=== PATIENT | male | born 1940 | race Caucasian/White ===

== ENCOUNTER → 2018-08-13 | Outpatient (REF) | payer MEDICARE | LOC: M SMT 17:06 | DX: R97.20 Elevated prostate specific antigen [PSA] (principal) | CPT/HCPCS: 87086 ==

== ENCOUNTER 2019-08-09 10:44 | Inpatient (IN) | payer MEDICARE ==
[~2019-08-09] VITALS: Ht 172.7 cm; Wt 87.4 kg
[2019-08-09] MEDS ORDERED: ATOR80TA59 PO (11:19)
[2019-08-09] MEDS ORDERED: PIOG1TAB36 PO (11:19)
[2019-08-09] MEDS ORDERED: FENO134C PO (11:19)
[2019-08-09] MEDS ORDERED: CARV3.12 PO (11:19)
[2019-08-09] MEDS ORDERED: GLIP5TAB8 PO (11:19)
[2019-08-09] MEDS ORDERED: LISI-538 PO (11:19)
[2019-08-09] MEDS ORDERED: ZYLO300T6 PO (11:19)
[2019-08-09] MEDS ORDERED: CYMB1CAP4 PO (11:19)
[2019-08-09] MEDS ORDERED: PARO40TA2 PO (11:19)
[2019-08-09] MEDS ORDERED: AMOX500T PO (11:19)
[2019-08-09] MEDS ORDERED: LEVO50TA5 PO (11:19)
--- NOTE | 2019-08-09 11:26 | REP ---
Clinical: Acute cerebrovascular accident . Findings: Age-related atrophy and microvascular ischemic changes are appreciated. The ventricles and sulci are symmetric. Mullins-white differentiation is maintained. There is no evidence for acute intracranial hemorrhage, mass/mass effect, pathology or infarction. No extra-axial fluid collection. Calvarium is intact. Paranasal sinuses and mastoid air cells are clear. Impression: Age related atrophy and microvascular ischemic changes. No acute intracranial hemorrhage, infarction, or mass/mass effect. Electronically Signed by Armando Hendrickson MD 08/09/2019 11:16 A
--- NOTE | 2019-08-09 11:32 | REP ---
Clinical: Acute cerebrovascular accident . Comparison: None . Findings: The mediastinum and cardiac silhouette are within normal limits for portable technique. Evidence of prior sternotomy and CABG along with epidural stimulator. The lung shea are clear without acute consolidation, effusion, or pneumothorax. Skeletal structures are intact. Impression: No acute cardiopulmonary process appreciated. Electronically Signed by Armando Hendrickson MD 08/09/2019 11:23 A
[2019-08-09 11:35] LABS: BASO # 0.1 10^3/uL (0.0-0.2); BASO % 1.2 % (0.0-1.0); EOS # 0.6 10^3/uL (0.0-0.5); EOS % 5.7 % (0.0-3.0); HEMATOCRIT 42.8 % (42.0-52.0); HEMOGLOBIN 13.7 g/dl (13.5-17.5); LYMPH # 2.6 10^3/uL (1.5-5.0); LYMPH % 24.9 % (24.0-44.0); MEAN CORPUSCULAR HEMOGLOBIN 31.2 pg (27.0-33.0); MEAN CORPUSCULAR VOLUME 97.5 fl (80.0-96.0); MONO # 0.8 10^3/uL (0.0-0.8); MONO % 7.8 % (0.0-5.0); NEUTROPHILS # 6.2 10^3/uL (1.5-8.5); NEUTROPHILS % 59.7 % (36.0-66.0); PLATELET COUNT, AUTOMATED 237 10^3/uL (150-450); RED BLOOD COUNT 4.39 10^6/uL (4.30-6.10); WHITE BLOOD COUNT 10.4 10^3/uL (4.0-10.0)
[2019-08-09 11:45] LABS: INR 1.06; PROTHROMBIN TIME 13.5 SECONDS (11.8-14.0)
[2019-08-09 11:46] LABS: PARTIAL THROMBOPLASTIN TIME 25.5 SECONDS (25.0-38.4)
[2019-08-09 11:56] LABS: BLOOD UREA NITROGEN 19 MG/DL (7-18); CALCIUM LEVEL 9.1 MG/DL (8.8-10.2); CARBON DIOXIDE LEVEL 28 MEQ/L (21-32); CHLORIDE LEVEL 108 MEQ/L (98-107); CK-MB VALUE MASS 1.3 NG/ML (<3.6); CPK CREATINE PHOSPHOKINASE 49 U/L (39-308); GLOMERULAR FILTRATION RATE 52.2 (>42); GLUCOSE, FASTING 261 MG/DL (70-100); MB/CK RELATIVE INDEX 2.65 (< OR =4); POTASSIUM SERUM 4.8 MEQ/L (3.5-5.1); SODIUM LEVEL 142 MEQ/L (136-145); TROPONIN I < 0.02 NG/ML (< 0.10)
[2019-08-09] MEDS ORDERED: ASPIRIN 325 MG TAB PO ONE (12:45)
[2019-08-09] MEDS ORDERED: CHOL100029 PO (12:51)
[2019-08-09] MEDS ORDERED: MULTCAP PO (12:51)
[2019-08-09] MEDS ORDERED: ASPI81TA21 PO (12:51)
[2019-08-09] MEDS ORDERED: GLUCOSE 4 GM CHEW TABLET PO PRN (14:00)
[2019-08-09] MEDS ORDERED: DEXTROSE 50% 50 ML SYRINGE IV PRN (14:00)
[2019-08-09] MEDS ORDERED: MOM 30ML SUSPENSION UDC PO PRN (14:00)
[2019-08-09] MEDS ORDERED: ACETAMINOPHEN TAB 650MG DOSE (2X325MG) PO PRN (14:00)
[2019-08-09] MEDS ORDERED: MAALOX 30 ML SUSP *UDC PO PRN (14:00)
[2019-08-09] MEDS ORDERED: GLUCAGON FOR INJ 1 MG VIAL (J1610) SC PRN (14:00)
--- NOTE | 2019-08-09 15:02 | REP ---
Clinical: Acute cerebrovascular accident . Technique: Mullins scale and color Doppler evaluation using linear high frequency transducer Findings: Two-dimensional mullins scale and color images demonstrate bilateral mixed atheromatous plaquing predominantly involving the right carotid bulb and proximal internal/external carotid arteries. Right-sided spectral broadening is noted along with mild turbulent flow. Normal flow direction noted to the bilateral vertebral arteries. RIGHT (cm/s) LEFT (cm/s) ICA peak systolic velocity 182.0 89.5 ICA diastolic velocity 40.1 23.1 ECA peak systolic velocity 602.4 131.2 CCA peak systolic velocity 77.6 107.1 ICA/CCA ratio 2.35 0.84 Impression: 1. Narrowing of the right internal carotid artery in the 50-69% range. 2. Significant stenosis to the right external carotid artery. 3. Narrowing of the left internal carotid artery in the less than 50%/normal range. Electronically Signed by Armando Hendrickson MD 08/09/2019 02:54 P
[2019-08-09 15:20] VITALS: BP 198/94
[2019-08-09] MEDS ORDERED: ISOVUE-370 76% 100ML VIAL (Q9967) As Ordered ONE (15:28)
[2019-08-09 16:00] VITALS: BP 198/94
[2019-08-09] MEDS ORDERED: CLOPIDOGREL 75 MG TAB PO ONE (16:00)
[2019-08-09] MEDS: CARVedilol 3.125 MG TAB PO SCH (16:19)
[2019-08-09] MEDS: ATORVASTATIN 20 MG TAB PO SCH (16:20)
[2019-08-09] MEDS: amLODIPine 5 MG TAB PO SCH ×2 (16:20→20:03)
[2019-08-09] MEDS: NS 1,000 ML IV SCH (16:23)
[2019-08-09] MEDS ORDERED: glipiZIDE (GLUCOTROL) 5 MG TAB PO SCH (17:00)
--- NOTE | 2019-08-09 17:17 | REPVR ---
PROCEDURE INFORMATION: Exam: CT Angiography Head With Contrast Exam date and time: 08/09/2019 4:34 PM Age: 79 years old Clinical history: Speech disturbance; Slurred speech; Additional info: CVA slurred speech TECHNIQUE: Imaging protocol: Computed tomography angiography of the head with intravenous contrast. 3D rendering: MIP and 3D reconstructed images were created and reviewed. Radiation optimization: All CT scans at this facility use at least one of these dose optimization techniques: automated exposure control; mA and/or kV adjustment per patient size (includes targeted exams where dose is matched to clinical indication); or iterative reconstruction. Contrast material: ISOVUE 370; Contrast volume: 100 ml; Contrast route: IV; COMPARISON: CT Head without contrast 08/09/2019 11:08 AM FINDINGS: Right internal carotid artery: Atherosclerotic changes demonstrated in the right intracranial carotid artery. There is mild to moderate stenosis. Right anterior cerebral artery: Unremarkable. No occlusion or significant stenosis. No aneurysm. Right middle cerebral artery: Moderate atherosclerotic narrowing distal M1 segment on the right. Right posterior cerebral artery: Unremarkable. No occlusion or significant stenosis. No aneurysm. Right vertebral artery: Mild atherosclerotic changes in the V4 segment of the right vertebral artery without significant stenosis. Left internal carotid artery: Atherosclerotic changes demonstrated in the left intracranial carotid artery. There is mild to moderate stenosis. Left anterior cerebral artery: Atherosclerotic moderate to high-grade narrowing and luminal irregularity in the left A1 segment. Left middle cerebral artery: Unremarkable. No occlusion or significant stenosis. No aneurysm. Left posterior cerebral artery: Unremarkable. No occlusion or significant stenosis. No aneurysm. Left vertebral artery: Unremarkable. No occlusion or significant stenosis. No aneurysm. Basilar artery: Dual supply of the right posterior cerebral artery from persistent circulation and contribution from the basilar artery. Dual supply to the left posterior cerebral artery from persistent circulation contribution from the basilar artery. IMPRESSION: 1. Atherosclerotic changes demonstrated in the right intracranial carotid artery. There is mild to moderate stenosis. 2. Atherosclerotic changes demonstrated in the left intracranial carotid artery. There is mild to moderate stenosis. 3. Moderate atherosclerotic narrowing distal M1 segment on the right. 4. Atherosclerotic moderate to high-grade narrowing and luminal irregularity in the left A1 segment. Electronically signed by: Karl Lobo On 08/09/2019 17:17:07 PM
--- NOTE | 2019-08-09 17:22 | REPVR ---
PROCEDURE INFORMATION: Exam: CT Angiography Neck With Contrast Exam date and time: 08/09/2019 4:34 PM Age: 79 years old Clinical history: Speech disturbance; Slurred speech; Additional info: CVA slurred speech TECHNIQUE: Imaging protocol: Computed tomography angiography of the neck with intravenous contrast. 3D rendering: MIP and 3D reconstructed images were created and reviewed. Radiation optimization: All CT scans at this facility use at least one of these dose optimization techniques: automated exposure control; mA and/or kV adjustment per patient size (includes targeted exams where dose is matched to clinical indication); or iterative reconstruction. Contrast material: ISOVUE 370; Contrast volume: 100 ml; Contrast route: IV; COMPARISON: US Duplex,carotid (complete) 08/09/2019 2:19 PM FINDINGS: VASCULATURE: Right common carotid artery: Tortuous right common carotid artery. Right internal carotid artery: There is moderate atherosclerotic changes in the proximal right ICA estimated at 50-60 % narrowing which is consistent with a moderate stenosis using NASCET criteria. Right external carotid artery: Unremarkable. No occlusion or stenosis of the origin. Right vertebral artery: Mild right vertebral artery dominance. Mild atherosclerosis before segment of the right vertebral artery without significant stenosis. Left common carotid artery: Unremarkable. No stenosis. No dissection or occlusion. Left internal carotid artery: There is mild to moderate atherosclerotic changes in the proximal left ICA estimated at less than 50 % narrowing which is consistent with a mild stenosis using NASCET criteria. Left external carotid artery: Unremarkable. No occlusion or stenosis of the origin. Left vertebral artery: Short segment high-grade stenosis in the mid V4 segment of the left vertebral artery either secondary to atherosclerotic narrowing or perhaps representing a short segment dissection. Subclavian arteries: Mild orthostatic changes at the origins of the left subclavian basilar arteries without significant stenosis. Aorta: The aorta demonstrates mild atherosclerotic calcification. Other vasculature: There is moderate atherosclerotic calcification of the coronary arteries. NECK: Bones/joints: Degenerative spondylosis cervical spine. Soft tissues: Normal. No significant soft tissue swelling. IMPRESSION: 1. There is moderate atherosclerotic changes in the proximal right ICA estimated at 50-60 % narrowing which is consistent with a moderate stenosis using NASCET criteria. 2. There is mild to moderate atherosclerotic changes in the proximal left ICA estimated at less than 50 % narrowing which is consistent with a mild stenosis using NASCET criteria. 3. Short segment high-grade stenosis in the mid V4 segment of the left vertebral artery either secondary to atherosclerotic narrowing or perhaps representing a short segment dissection. COMMENT: Reference per NASCET criteria for degree of stenosis: Mild: less than 50% stenosis. Moderate: 50-69% stenosis. Severe: 70-94% stenosis. Near occlusion: 95-99% stenosis. Electronically signed by: Karl Lobo On 08/09/2019 17:21:57 PM
[2019-08-09 17:55] VITALS: BP 169/78
[2019-08-09] MEDS ORDERED: **hydrALAZINE** 10 MG TAB PO SCH (18:00)
[2019-08-09] MEDS: **hydrALAZINE** 10 MG TAB PO SCH ×2 (18:00→22:00)
[2019-08-09] MEDS: HumaLOG INSULIN (NovoLOG) PER UNIT SC SCH ×2 (18:17→21:00)
[2019-08-09] MEDS: ISOSORBIDE DIN (ISORDIL) 10 MG TAB PO SCH (18:17)
[2019-08-09 20:00] VITALS: BP 172/64
[2019-08-09] MEDS: ENOXAPARIN 30 MG/0.3 ML SYR (J1650) SC SCH (20:01)
[2019-08-10] VITALS (10 sets, daily range): BP systolic 134–180; BP diastolic 60–80
[2019-08-10] MEDS: **hydrALAZINE** 10 MG TAB PO SCH ×6 (02:00→20:30)
[2019-08-10] MEDS: NS 1,000 ML IV SCH (05:23)
[2019-08-10] MEDS: CARVedilol 3.125 MG TAB PO SCH ×2 (05:24→16:30)
[2019-08-10 05:35] LABS: HEMATOCRIT 38.2 % (42.0-52.0); HEMOGLOBIN 12.2 g/dl (13.5-17.5); MEAN CORPUSCULAR HEMOGLOBIN 31.4 pg (27.0-33.0); MEAN CORPUSCULAR HGB CONC 31.9 g/dl (32.0-36.5); MEAN CORPUSCULAR VOLUME 98.2 fl (80.0-96.0); PLATELET COUNT, AUTOMATED 180 10^3/uL (150-450); RED BLOOD COUNT 3.89 10^6/uL (4.30-6.10); WHITE BLOOD COUNT 7.6 10^3/uL (4.0-10.0)
[2019-08-10] MEDS: LEVOTHYROXINE 50MCG TABLET (0.05MG) PO SCH (05:51)
[2019-08-10 06:01] LABS: ALBUMIN 3.3 GM/DL (3.2-5.2); ALT/SGPT 21 U/L (12-78); BILIRUBIN,TOTAL 0.5 MG/DL (0.2-1.0); BLOOD UREA NITROGEN 16 MG/DL (7-18); CALCIUM LEVEL 8.9 MG/DL (8.8-10.2); CARBON DIOXIDE LEVEL 27 MEQ/L (21-32); CHLORIDE LEVEL 111 MEQ/L (98-107); CREATININE FOR GFR 1.14 MG/DL (0.70-1.30); GLOMERULAR FILTRATION RATE > 60.0 (>42); GLUCOSE, FASTING 115 MG/DL (70-100); POTASSIUM SERUM 4.1 MEQ/L (3.5-5.1); SODIUM LEVEL 144 MEQ/L (136-145); TOTAL PROTEIN 6.3 GM/DL (6.4-8.2)
[2019-08-10] MEDS: ISOSORBIDE DIN (ISORDIL) 10 MG TAB PO SCH ×3 (06:50→17:00)
--- NOTE | 2019-08-10 07:25 | ECGEPIP ---
[facility] - ED Test Date: 2019-08-09 Pat Name: ROSA PINEDO Department: Room: - Gender: Male Electronic Funds Transfer Coordinator: rena : 1940 Requested By: PAULA Paula Order Number: [id number] Reading MD: Heidi Nieto Measurements Intervals Faison Rate: 74 P: 265 CO: 360 QRS: 20 QRSD: 105 T: 80 QT: 393 QTc: 437 Interpretive Statements ELECTRONIC INTERFERENCE NSR PACS LAE NSTTW abnormalities No prior ABNORMAL RHYTHM ECG Electronically Signed on 08-10-2019 7:24:50 EST by Heidi Nieto
[2019-08-10] MEDS ORDERED: VITAMIN D 1,000 INTERNATIONAL UNITS TABLET PO SCH (09:00)
[2019-08-10] MEDS ORDERED: LISINOPRIL 20 MG TAB PO SCH (09:00)
[2019-08-10] MEDS: HumaLOG INSULIN (NovoLOG) PER UNIT SC SCH ×4 (09:02→20:34)
[2019-08-10] MEDS: ALLOPURINOL 300 MG TAB PO SCH (09:03)
[2019-08-10] MEDS: PARoxetine 20 MG TAB PO SCH (09:03)
[2019-08-10] MEDS: CLOPIDOGREL 75 MG TAB PO SCH (09:03)
[2019-08-10] MEDS: ATORVASTATIN 20 MG TAB PO SCH (09:03)
[2019-08-10] MEDS: amLODIPine 5 MG TAB PO SCH ×2 (10:23→20:31)
--- NOTE | 2019-08-10 10:42 | HPE ---
DATE OF ADMISSION: 08/09/2019 CHIEF COMPLAINT: Slurred speech, gait instability. HISTORY OF PRESENTING ILLNESS: 79-year-old male who was in his usual state of health until 2 weeks ago, when he developed cough/cold symptoms, treated with amoxicillin in early July with a second course the past week. Patient has not been feeling well and has been increasingly tired and sleepy. On Saturday, he appeared to be normal, but before dinner, patient was noted to have slurring of speech. asked why he was mumbling, and the patient said that he did not think he put enough Fixodent on his dentures. Into the evening, patient appeared stable, walked back into the room after dinner. All day on Saturday, however, patient was noted to have worsening slurred speech, face was still symmetric. He was felt to be stumbling along as he walked with the right side appearing to be a little weaker and grabbing onto things. Patient had not had any falls and did not require any assistance with ambulation. Around 9 o'clock in the evening, patient's called the children and called 9--. The patient was adamant about not coming into the hospital, l his glucose level was normal, and he decided not to be evaluated. He is chronically on aspirin 81 mg, had not taken any others. Per the family, he was difficult to understand, but the words he selected were appropriate. He was leaning more to the right side and usually right-handed, having increasing tremors, but was able to eat his dinner without any difficulty. Today, due to worsening symptoms, patient was brought in by family to the emergency room. Initial blood pressure was 147/65. Glucose was 261, creatinine of 1.4. CT of the head was negative. No acute intracranial hemorrhage, infarct, or mass, or mass effect. Chest x-ray showed no acute cardiopulmonary process. Hospitalist was called to admit for slurred speech evaluation for acute stroke. At the bedside, he was noted to have difficulty with thin liquids, choked and spat out all of the water. Patient stated that he was coughing as he had been the past few days, and it was not because he had trouble swallowing. He was able to take the aspirin in, but all the liquid came out. PAST MEDICAL HISTORY: Coronary artery disease (CAD) stent, 1998. Coronary artery bypass graft (CABG). Hypothyroidism. BPH with lower urinary tract symptoms (LUTS). Obstructive sleep apnea (LIVIER), no mask. Gastric reflux. Hypertension. Prostatitis. Gout. Vitamin D deficiency. Erectile dysfunction. Hypercholesterolemia. Kidney stones. Myocardial infarction (CO) in 1998. Hyperlipidemia. Type 2 diabetes. Depression. History of atrial fibrillation. ALLERGIES: No known drug allergies. PAST SURGICAL HISTORY: CABG times four vessels. TENS unit. Kidney stones extraction. Epidural stimulator. HOME MEDICATIONS: - amoxicillin 500 mg every 8 hourly - fenofibrate 134 mg daily - multivitamin one tablet daily - pioglitazone 15 mg daily - aspirin 81 mg daily - allopurinol 300 mg daily - atorvastatin 80 mg nightly - Coreg 3.125 mg twice a day - glipizide 5 mg by mouth four times a day - levothyroxine 50 mcg daily - lisinopril 20 mg daily - paroxetine 40 mg daily - vitamin D 1000 units daily SOCIAL HISTORY: DO NOT RESUSCITATE, DO NOT INTUBATE. is the healthcare proxy [phone]. Lives at home with his . Finished high school. No alcohol use. Retired manager billing. Patient was a former smoker, quit in 1983. REVIEW OF SYSTEMS: Per history of present illness (HPI). Otherwise, denies any fever or chills. Had upper respiratory infection recently and cough productive of white sputum. No nausea, vomiting, diarrhea, abdominal pain, dysuria, urgency, frequency, chest pain, pressure, tightness, shortness of breath, palpitations, lightheadedness, dizziness. Patient complains of gait ataxia, slurring of speech. No difficulty with understanding. Able to speak using the correct words. No weight gain, weight loss. PHYSICAL EXAMINATION: Temperature 97.2, pulse 74, respiratory rate 16, 97% on room air, blood pressure 147/65, height 5 feet 8 inches tall, weight is 87.4 kg. Generally, patient is awake, alert, oriented to person, place, and time. Answers questions appropriately. Patient has right facial droop, some slurred speech. Speech is delayed. Tongue is deviated. Uvula also deviated. No jugular venous distention (JVD). Some dysmetria on [id number] testing. Motor function is 4/5. Decreased hand land law examiner on the left greater than the right. No sensory disturbance. Able to decipher sharp and dullness bilateral upper and lower extremities. Motor function in the right arm is 4/5, left is 5/5, lower extremities 5/5. Gait was not tested. Heart: S1, S2, irregular. Lungs are clear to auscultation. No wheezing or rales. Abdomen is soft, nontender, nondistended. Positive bowel sounds. Extremities: No cyanosis, clubbing, or pitting edema. White count 10.4, hemoglobin 13, hematocrit 42, platelet count 237. Sodium 142, potassium 4.8, chloride 108, bicarbonate 28, BUN 19, creatinine 1.4, glucose 261, total CK 49, MB 1.3. Troponin less than 0.02. IMAGING: CT head: No acute intracranial infarct, hemorrhage, or mass. Chest x-ray: Prior sternotomy, CABG, epidural stimulator. Lungs are clear. ASSESSMENT AND PLAN: 79-year-old male with history coronary artery disease (CAD) and coronary artery bypass graft (CABG), with epidural stimulator, on chronic aspirin, hypertension, diabetes, hyperlipidemia, obstructive sleep apnea, presents with complaint of slurring of speech that started on Saturday, worsened into Saturday, and brought into the emergency room on Saturday. Family has also noted gait ataxia, and patient complains of right-sided weakness, upper arm. ACTIVE ISSUES: 1. Slurred speech with right upper extremity weakness. Swallow evaluation to rule out aspiration. Currently, on dysphagia diet and thickened liquids. Aspirin 325 has been given, per Dr. Morales, Plavix to be added. Neuro checks every [address] A [address] angio of the head and neck. Neurologist, Dr. Morales, has been consulted. Echocardiogram and ARU screen. 2. Dysphagia to liquids. Aspiration risk. Head of bed greater than 30 degrees at all times and 90-degree angle with eating. 3. Renal failure. Unknown whether this is acute kidney injury or chronic kidney disease. Obtain records from patient's primary care. 4. Hypertension, uncontrolled. Due to acute stroke, keep blood pressure 160-180. Due to contrast study, patient has been given intravenous fluids to decrease risk of contrast nephropathy, and his lisinopril has been held. He is currently on isosorbide and hydralazine for blood pressure control. 5. Type 2 diabetes. Currently on hypoglycemic protocol, sliding scale. Oral hypoglycemics have been held secondary to renal failure and possible nothing by mouth status in the near future if patient is showing aspiration with thickened liquids. 6. History of epidural stimulator. Unable to obtain an MRI at this time. 7. Code status. DO NOT RESUSCITATE, DO NOT INTUBATE.
--- NOTE | 2019-08-10 10:56 | IPN ---
DATE: 08/10/2019 Overnight telemetry shows sinus rhythm with frequent premature atrial complexes. No atrial fibrillation or atrial flutter noted overnight. Patient was given aspirin and Plavix. CT head and neck shows high degree narrowing in the left vertebral artery. Mild to moderate stenosis right intracranial carotid artery, mild to moderate stenosis in the left intracranial carotid artery. Moderate atherosclerotic narrowing at distal M1 on the right and moderate to high grade narrowing and luminal irregularity in the left A1 segment. Moderate atherosclerotic changes proximal right internal carotid artery (ICA) 50-60%. Mild to moderate atherosclerotic internal jugular (IJ) changes proximal left ICA. Short segment of high grade stenosis mid V4 in the left vertebral artery secondary to atherosclerotic narrowing. The patient has no new neurological complaints overnight. Continues to complain of facial drooping, some dysphagia but tolerated thickened liquids yesterday. Awaiting swallow evaluation today and right hand and arm weakness. PHYSICAL EXAMINATION: Temperature 97.9, pulse 60, respiratory rate 16, blood pressure 164/80, 95% on room air. Patient has a notable right facial droop. Speech is slightly slurred. She improved from yesterday. No use of respiratory accessory muscles. No jaundice. No icterus. Patient has dentures. Bilateral cessation systems outreach specialist are decreased. Right arm strength is 4/5. Bilateral lower extremities are 5/5. Some dysmetria on [id number] testing. No pronator drift. Lungs are clear to auscultation. No wheezing, rales or rhonchi. Heart: S1, S2 regular. Abdomen is soft, nontender, nondistended. Positive bowel sounds. Extremities: No cyanosis, clubbing or pitting edema. LAB DATA: White count 7.6, hemoglobin 12, hematocrit 38, platelet count 180. Sodium 144, potassium 4.1, chloride 111, bicarbonate 27, BUN 16, creatinine 1.14, glucose 115. Imaging studies reviewed. ASSESSMENT/PLAN: This is a 79-year-old male with history of hypertension, coronary artery disease (CAD), coronary artery bypass graft (CABG), hypercholesterolemia, obstructive sleep apnea (LIVIER) elevate PSA, who presented with slurred speech, right-side weakness and ataxia since Saturday. He was found to have high-grade stenosis on the left vertebral artery 1. Acute cerebrovascular accident (CVA): Patient is at risk for aspiration and has been placed on dysphagia-free diet with thickened liquids. Swallow evaluation today. On aspirin and Plavix. Neurology consult and neurological checks every 4 hours. Blood pressure maintained between 160-180 the first [address] of the head this afternoon. Continue telemetry and echo pending. 2. Hypertension: Currently keeping the systolic pressure at 160-180. Patient's lisinopril was discontinued due to acute kidney injury and recent contrast study. Currently, stable. Add Isosorbide and hydralazine as needed for systolic pressure greater than 180. 3. Gout: On allopurinol. 4. Depression: On Paxil. 5. History of coronary artery disease: Patient on aspirin and Plavix hydralazine, Imdur and Coreg. 6. Dyslipidemia: On Lipitor. DISPOSITION: Await swallow evaluation, echocardiogram and neurologic recommendations. Acute rehabilitation unit (ARU) screen.
[2019-08-10 11:04] LABS: CHOLESTEROL LEVEL 152 MG/DL (<200); CHOLESTEROL RISK RATIO 6.333 (<5); HDL CHOLESTEROL 24 MG/DL (>40); LDL CHOLESTEROL 79 MG/DL (<100); NON-HDL-C 128 MG/DL; TRIGLYCERIDES LEVEL 247 MG/DL (<150)
--- NOTE | 2019-08-10 16:52 | REP ---
CT brain: 08/10/2019. Indication: Stroke. Comparison: Yesterday. Technique: Unenhanced axial CT images of the brain were obtained from skull base to vertex. Findings: There is no acute intracranial hemorrhage, acute cortical infarction, hydrocephalus or intracranial mass effect. Age-related volume loss is present. Mineralization is noted within the basal ganglia bilaterally and left dentate nucleus. Patchy cerebral hemisphere white matter hypoattenuation is present most consistent with sequelae of chronic microangiopathic ischemic disease. Impression: No intracranial hemorrhage or additional acute intracranial pathology. Electronically Signed by Ej Morel DO 08/10/2019 04:44 P
[2019-08-10] MEDS: ENOXAPARIN 30 MG/0.3 ML SYR (J1650) SC SCH (20:29)
[2019-08-10] MEDS: ASPIRIN 81 MG ENTERIC TAB PO SCH (20:30)
[2019-08-10] MEDS ORDERED: SLF 3 ML SYR IV PRN (23:45)
[2019-08-11] VITALS (9 sets, daily range): BP systolic 142–170; BP diastolic 60–84
[2019-08-11] MEDS: **hydrALAZINE** 10 MG TAB PO SCH ×3 (01:19→10:00)
[2019-08-11] MEDS: ISOSORBIDE DIN (ISORDIL) 10 MG TAB PO SCH ×2 (05:55→11:50)
[2019-08-11] MEDS: LEVOTHYROXINE 50MCG TABLET (0.05MG) PO SCH (05:56)
[2019-08-11] MEDS: CARVedilol 3.125 MG TAB PO SCH ×2 (05:57→16:47)
[2019-08-11] MEDS: SLF 3 ML SYR IV SCH ×3 (05:57→20:10)
[2019-08-11 05:59] LABS: HEMATOCRIT 38.9 % (42.0-52.0); HEMOGLOBIN 12.1 g/dl (13.5-17.5); MEAN CORPUSCULAR HEMOGLOBIN 30.6 pg (27.0-33.0); MEAN CORPUSCULAR HGB CONC 31.1 g/dl (32.0-36.5); MEAN CORPUSCULAR VOLUME 98.2 fl (80.0-96.0); PLATELET COUNT, AUTOMATED 184 10^3/uL (150-450); RED BLOOD COUNT 3.96 10^6/uL (4.30-6.10)
[2019-08-11 06:09] LABS: BLOOD UREA NITROGEN 13 MG/DL (7-18); CALCIUM LEVEL 8.5 MG/DL (8.8-10.2); CARBON DIOXIDE LEVEL 27 MEQ/L (21-32); CHLORIDE LEVEL 113 MEQ/L (98-107); GLOMERULAR FILTRATION RATE > 60.0 (>42); GLUCOSE, FASTING 163 MG/DL (70-100); MAGNESIUM LEVEL 1.9 MG/DL (1.8-2.4); POTASSIUM SERUM 3.9 MEQ/L (3.5-5.1); SODIUM LEVEL 145 MEQ/L (136-145)
[2019-08-11] MEDS: ALLOPURINOL 300 MG TAB PO SCH (08:20)
[2019-08-11] MEDS: CLOPIDOGREL 75 MG TAB PO SCH (08:20)
[2019-08-11] MEDS: ATORVASTATIN 20 MG TAB PO SCH (08:20)
[2019-08-11] MEDS: PARoxetine 20 MG TAB PO SCH (08:21)
[2019-08-11] MEDS: HumaLOG INSULIN (NovoLOG) PER UNIT SC SCH ×4 (08:21→20:09)
[2019-08-11] MEDS: amLODIPine 5 MG TAB PO SCH ×2 (08:24→20:21)
--- NOTE | 2019-08-11 09:11 | CR ---
DATE OF CONSULTATION: 08/11/2019 REASON FOR CONSULTATION: Suspected stroke. REFERRING PROVIDER: Dr. Leix Quick. Tano Mcneill is a 79-year-old male with past medical history significant for spinal column stimulator and significant coronary artery disease status post coronary artery bypass graft (CABG) and repeat stenting. The patient presented with symptoms of transient dysarthria on Saturday noticed by his . Since then had symptoms stronger on Saturday associated were right-sided hemiparesis. The patient does not go to the emergency department until Saturday. The patient was not noted to have any evidence of stroke on head CT. He did not get an MRI due to having an incompatible spinal column stimulator which precepts the MRI scanner. The patient subsequently was placed on aspirin and Plavix. CT angiogram revealed high-grade intracranial stenosis of the left A1 segment, mild to moderate bilateral internal carotid artery (ICA) stenosis with 50-60% stenosis noted on the right ICA and short segment high-grade beforeV4 stenosis as well. The patient remains on aspirin, and Plavix in the hospital. He seems to be doing very well. He continues to have significant weakness of the right side of the body including right facial droop, right arm and leg weakness with significant pronator drift. The patient has difficulty ambulating as a result. So far, he has not shown any evidence of atrial fibrillation on telemetry monitoring. Echocardiogram has been included. The patient does follow with cardiology regularly. He denies any dysarthria, aphasia, vertigo at this time. PAST MEDICAL HISTORY: Coronary disease stents 1998. Coronary artery bypass graft. Hypothyroidism. Benign prostatic hypertrophy (BPH). Urinary tract infection. Obstructive sleep apnea without treatment. Gastric reflux. Hypertension. Prostatitis. Vitamin D deficiency. Gout. Erectile dysfunction. Hypercholesterolemia. Kidney stones. Myocardial infarction 1990. Hyperlipidemia. Type 2 diabetes. Depression. History of atrial fibrillation as per chart. PAST SURGICAL HISTORY: CABG times four-vessel. Spinal column stimulator placement. Kidney stone extraction. Epidural stimulator. REVIEW OF SYSTEMS: 14-point review of systems obtained and is negative except as per history of present illness (HPI). HOME MEDICATIONS: - amoxicillin - fenofibrate - multivitamin - pioglitazone - aspirin 81 mg by mouth daily - allopurinol - atorvastatin 80 mg by mouth nightly - Coreg 3.125 mg twice a day - glipizide - levothyroxine 50 mcg daily - lisinopril 20 mg daily - paroxetine 40 mg daily - vitamin D 1000 units SOCIAL HISTORY: The patient is a former smoker, quit in 1983. Denies use of any alcohol or recreational rugs. PHYSICAL EXAMINATION: Blood pressure a 142/60, pulse rate is 60, respiratory rate is 18, temperature is 96.8 degrees Fahrenheit, oxygenation 97% on room air. The patient is awake, alert, oriented to person, place and time. Speech, language comprehension, repetition are intact without any significant dysarthria or aphasia. Pupils are 2.5 mm round, reactive to light. Extraocular movements intact in all directions without nystagmus. Sensation V1, V2, V3 is intact to light touch. There appears facial asymmetry on activation with right facial weakness in an upper motor neuron distribution. Appears to be weakness in the right deltoid and biceps of 4+, triceps appears to be 5-, iliopsoas is 4/5, quadriceps is 5-, anterior tibialis is 4/5 on the right. Strength is 5/5 on the left. Sensory is intact to light touch in all four extremities. Coordination: There is no gross ataxia, dysmetria. Romberg testing deferred. ASSESSMENT: 1. 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 The patient cannot have an MRI to confirm stroke though clinically, it is obvious the patient has had a stroke. Due to documentation in the chart and as the patient has had a history of atrial fibrillation given the findings of the stroke, I recommend cardiology consultation for evaluation of the necessity of anticoagulation plus antiplatelet therapy. At this point, the patient continue aspirin 81 mg daily and Plavix 75 mg daily due to the high-grade intracranial stenosis. If he starts anticoagulation, then he can discontinue his Plavix and remain on aspirin and that coagulation. Continue telemetry monitoring. Continue physical therapy (PT), occupational therapy (OT) evaluation. Continue statin Lipitor 80 mg daily day. Optimize hypertension, hyperlipidemia and diabetes.
[2019-08-11] MEDS: FENOFIBRATE 145 MG TAB (TRICOR) PO SCH (13:58)
[2019-08-11] MEDS: ASPIRIN 81 MG ENTERIC TAB PO SCH (20:20)
[2019-08-11] MEDS: ENOXAPARIN 30 MG/0.3 ML SYR (J1650) SC SCH (20:20)
--- NOTE | 2019-08-11 22:46 | IPNPDOC ---
Subjective Date Seen The patient was seen on 08/11/19. Subjective Chief Complaint/HPI DOes not offer any complaints today. Working with speech therapy for dysphagia and they reccomended continuing swallow therapy after discharge form the hospital. Objective Physical Examination General Exam: Positive: Alert, Cooperative, No Acute Distress Eye Exam: Positive: PERRLA, Conjunctiva & lids normal, EOMI; Negative: Sclera icteric ENT Exam: Positive: Atraumatic, Mucous membr. moist/pink, Pharynx Normal Neck Exam: Positive: Supple; Negative: JVD, thyromegaly Chest Exam: Positive: Clear to auscultation, Normal air movement Heart Exam: Positive: Rate Normal, Regular Rhythm, Normal S1, Normal S2; Negative: Murmurs, Rubs Telemetry: Positive: No significant arrhythmia Abdomen Exam: Positive: Normal bowel sounds, Soft; Negative: Tenderness, Hepatospenomegaly Extremity Exam: Positive: Normal pulses; Negative: Clubbing, Cyanosis, Edema Skin Exam: Positive: Nl turgor and temperature; Negative: Rash, Breakdown Neuro Exam: Positive: Normal Tone, Other (right sided hemiparesis. speech slurred.) Assessment /Plan Assessment This is a 79-year-old male with history of hypertension, coronary artery disease (CAD) s/p AMI in 1990 , coronary artery bypass graft (CABG), hypercholesterolemia, obstructive sleep apnea (LIVIER) untreated, Coronary disease stents 1998, Hypothyroidism, Benign prostatic hypertrophy (BPH), Gastric reflux, Prostatitis. Vitamin D deficiency, Gout, Erectile dysfunction, Kidney stones , spinal cord stimulator, Type 2 diabetes, Depression. History of atrial fibrillation as per chart, who presented with slurred speech, right-side weakness and ataxia noticed more than 24 hours prior to presentation to the hospital. He was found to have high-grade stenosis on the left vertebral artery Acute cerebrovascular accident (CVA): Patient is at risk for aspiration and has been placed on dysphagia-free diet with thickened liquids. Repeat CT of the head no change Continue telemetry Hypertension controlled at present will continue on amlodipine and coreg. Gout: On allopurinol. Depression: On Paxil. CAD continue ASA, statin, betablocker Dyslipidemia statin will restart fenofibrate Hypothyroid continue synthroid. Plan/VTE VTE Prophylaxis Ordered?: Yes VS, I&O, 24H, Fishbone Vital Signs/I&O Vital Signs Date Time Temp Pulse Resp B/P (MAP) Pulse Ox O2 Delivery O2 Flow Rate FiO2 08/11/19 12:00 96.2 72 18 96 Room Air 08/11/19 11:50 146/60 (88) I&O- Last 24 Hours up to 6 AM 08/11/19 06:00 Intake Total 2245 ml Output Total 1050 ml Balance 1195 ml Laboratory Data 24H LABS Laboratory Tests 2 08/10/19 18:26: Bedside Glucose (Misc Panel) 179H 08/10/19 20:25: Bedside Glucose (Misc Panel) 274H 08/11/19 05:25: Nucleated Red Blood Cells % (auto) 0.0, Anion Gap 5L, Glomerular Filtration Rate > 60.0, Calcium Level 8.5L, Magnesium Level 1.9 08/11/19 11:24: Bedside Glucose (Misc Panel) 218H CBC/BMP Laboratory Tests 08/11/19 05:25 Microbiology Microbiology 08/10/19 Respiratory Virus Panel (PCR) ([facility]) - Final, Complete GHADA PAPPAS MD Aug 11, 2019 13:31
[2019-08-12 04:00] VITALS: BP 179/79
[2019-08-12] MEDS: LEVOTHYROXINE 50MCG TABLET (0.05MG) PO SCH (04:33)
[2019-08-12] MEDS: CARVedilol 3.125 MG TAB PO SCH ×2 (04:33→16:28)
[2019-08-12] MEDS: SLF 3 ML SYR IV SCH ×3 (04:34→22:43)
[2019-08-12 06:10] LABS: HEMATOCRIT 38.5 % (42.0-52.0); HEMOGLOBIN 12.4 g/dl (13.5-17.5); MEAN CORPUSCULAR HEMOGLOBIN 30.7 pg (27.0-33.0); MEAN CORPUSCULAR HGB CONC 32.2 g/dl (32.0-36.5); MEAN CORPUSCULAR VOLUME 95.3 fl (80.0-96.0); PLATELET COUNT, AUTOMATED 181 10^3/uL (150-450); RED BLOOD COUNT 4.04 10^6/uL (4.30-6.10); WHITE BLOOD COUNT 7.2 10^3/uL (4.0-10.0)
[2019-08-12 06:22] LABS: BLOOD UREA NITROGEN 15 MG/DL (7-18); CARBON DIOXIDE LEVEL 27 MEQ/L (21-32); CHLORIDE LEVEL 110 MEQ/L (98-107); CREATININE FOR GFR 1.05 MG/DL (0.70-1.30); GLOMERULAR FILTRATION RATE > 60.0 (>42); GLUCOSE, FASTING 191 MG/DL (70-100); MAGNESIUM LEVEL 1.8 MG/DL (1.8-2.4); POTASSIUM SERUM 3.9 MEQ/L (3.5-5.1); SODIUM LEVEL 143 MEQ/L (136-145)
[2019-08-12 08:18] VITALS: BP 178/80
[2019-08-12] MEDS ORDERED: FLUBLOK(EGG FREE)(QUAD)INFLUENZA VACC 0.5ML SYRINGE (90682)18YRS&OLDER IM ONE (09:00)
[2019-08-12] MEDS ORDERED: PREVNAR 13 VACCINE SYRINGE (CPT CODE:90670) IM ONE (09:00)
[2019-08-12] MEDS: ALLOPURINOL 300 MG TAB PO SCH (09:33)
[2019-08-12] MEDS: ATORVASTATIN 20 MG TAB PO SCH (09:33)
[2019-08-12] MEDS: CLOPIDOGREL 75 MG TAB PO SCH (09:34)
[2019-08-12] MEDS: amLODIPine 5 MG TAB PO SCH ×2 (09:34→22:43)
[2019-08-12] MEDS: FENOFIBRATE 145 MG TAB (TRICOR) PO SCH (09:34)
[2019-08-12] MEDS: HumaLOG INSULIN (NovoLOG) PER UNIT SC SCH ×4 (09:35→21:00)
[2019-08-12] MEDS: PARoxetine 20 MG TAB PO SCH (09:35)
--- NOTE | 2019-08-12 10:55 | ECHO ---
DATE OF PROCEDURE: 08/10/2019 DATE OF : 1940 AGE: 79 HEIGHT: 68 inches WEIGHT: 191 pounds BODY SURFACE AREA: 2.0 m2 INPATIENT: U - Room 3223 REFERRING PHYSICIAN: Dr. Lexi Quick INDICATION: CVA - cardiac source of embolic material? MEASUREMENTS 2-D measurements: RV: 3.5 CM LV: 4.2 cm Septum: 1.2 cm Posterior wall: 1.2 cm Aortic root: 3.7 cm LA: 4.0 cm LVEF: 65% Doppler Measurements: AV: 1.2 m/s LVOT: 1.1 m/s LVOT diameterL: 2.0 cm MV - E 60 A 65 E/A ratio 0.9 Early mitral deceleration time: 222 ms E prime medial: 5.5 A prime medial: 9 E prim lateral: 7 Average E/E prime ratio: 9.5 PCWP: 13.7 mmHg PV: 0.75 m/s Pulmonary artery acceleration time: 116 ms PASP: 30 mmHg IVC: 1.5 cm COMMENTS: Sinus bradycardia without intraventricular conduction disturbance. Occasional PVC. Technically challenging study in light of the patient's body habitus, but diagnostically useful information was still obtained. M-mode and two-dimensional echocardiography was performed with pulsed, continuous wave, color flow and tissue Doppler studies. Borderline concentric left ventricle hypertrophy with localized proximal inferior akinetic segment consistent with prior infarction. Preserved global resting systolic function. Mildly dilated left atrium with impairment of LV diastolic dysfunction (grade 1) and current estimated mean left atrial pressure upper limits of normal. Normal right heart chamber sizes and motion with Doppler sign of borderline pulmonary hypertension. Normal IVC size and collapse against an elevated central venous pressure. Mild aortic valvular sclerosis without functional abnormality. Normal aortic root size. Slightly thickened mitral annulus without more than trace mitral insufficiency. Normal appearing tricuspid valve with trace insufficiency. No apparent intracardiac mass or pericardial effusion.
[2019-08-12 12:00] VITALS: BP 180/82
[2019-08-12] MEDS ORDERED: LISINOPRIL 10 MG TAB PO ONE (13:30)
--- NOTE | 2019-08-12 14:01 | IPNPDOC ---
Subjective Date Seen The patient was seen on 08/12/19. Subjective Chief Complaint/HPI N new co;mplaints today. No fever or chills, no chest pain or sob , no abdominal pain , nausea or vomiting. Objective Physical Examination General Exam: Positive: Alert, Cooperative, No Acute Distress Eye Exam: Positive: PERRLA, Conjunctiva & lids normal, EOMI; Negative: Sclera icteric ENT Exam: Positive: Atraumatic, Mucous membr. moist/pink, Pharynx Normal Neck Exam: Positive: Supple; Negative: JVD, thyromegaly Chest Exam: Positive: Clear to auscultation, Normal air movement Heart Exam: Positive: Rate Normal, Regular Rhythm, Normal S1, Normal S2; Negative: Murmurs, Rubs Telemetry: Positive: No significant arrhythmia Abdomen Exam: Positive: Normal bowel sounds, Soft; Negative: Tenderness, Hepatospenomegaly Extremity Exam: Positive: Normal pulses; Negative: Clubbing, Cyanosis, Edema Skin Exam: Positive: Nl turgor and temperature; Negative: Rash, Breakdown Neuro Exam: Positive: Normal Tone, Other (right sided hemiparesis. speech slurred.) Assessment /Plan Assessment This is a 79-year-old male with history of hypertension, coronary artery disease (CAD) s/p AMI in 1990 , coronary artery bypass graft (CABG), hyperchole sterolemia, obstructive sleep apnea (LIVIER) untreated, Coronary disease stents 1998, Hypothyroidism, Benign prostatic hypertrophy (BPH), Gastric reflux, Prostatitis. Vitamin D deficiency, Gout, Erectile dysfunction, Kidney stones , spinal cord stimulator, Type 2 diabetes, Depression. History of atrial fibrillation as per chart, who presented with slurred speech, right-side weakness and ataxia noticed more than 24 hours prior to presentation to the hospital. He was found to have high-grade stenosis on the left vertebral artery Acute cerebrovascular accident (CVA) with dysphagia and right hemiparesis of unkown time of onset. CT head negative. MRI could not be done due to spinal cord stimulator. continue ASA, statin, tighter bp control. Repeat CT of the head no change. continue dysphagia treatment as per ST. Hypertension uncontrolled will continue on amlodipine and coreg. will also start lisinopril Gout: On allopurinol. Depression: On Paxil. CAD continue ASA, statin, betablocker Dyslipidemia statin will restart fenofibrate Hypothyroid continue synthroid. Dispo ARU vs subacute rehab, Awaiting insurance approval. Plan/VTE VTE Prophylaxis Ordered?: Yes VS, I&O, 24H, Fishbone Vital Signs/I&O Vital Signs Date Time Temp Pulse Resp B/P (MAP) Pulse Ox O2 Delivery O2 Flow Rate FiO2 08/12/19 12:00 97.6 68 18 180/82 (114) 96 Room Air I&O- Last 24 Hours up to 6 AM 08/12/19 06:00 Intake Total 540 ml Output Total 1125 ml Balance -585 ml Laboratory Data 24H LABS Laboratory Tests 2 08/11/19 16:21: Bedside Glucose (Misc Panel) 211H 08/11/19 20:05: Bedside Glucose (Misc Panel) 229H 08/12/19 05:41: Nucleated Red Blood Cells % (auto) 0.0, Anion Gap 6L, Glomerular Filtration Rate > 60.0, Calcium Level 9.0, Magnesium Level 1.8 08/12/19 11:48: Bedside Glucose (Misc Panel) 244H CBC/BMP Laboratory Tests 08/12/19 05:41 Microbiology Microbiology 08/10/19 Respiratory Virus Panel (PCR) ([facility]) - Final, Complete GHADA PAPPAS MD Aug 12, 2019 14:01
[2019-08-12 16:00] VITALS: BP 156/76
[2019-08-12 20:00] VITALS: BP 160/80
[2019-08-12] MEDS: ASPIRIN 81 MG ENTERIC TAB PO SCH (22:42)
[2019-08-12] MEDS: ENOXAPARIN 30 MG/0.3 ML SYR (J1650) SC SCH (22:42)
[2019-08-12 23:59] VITALS: BP 141/71
[2019-08-13 04:00] VITALS: BP 148/78
[2019-08-13] MEDS: CARVedilol 3.125 MG TAB PO SCH (04:00)
[2019-08-13] MEDS: SLF 3 ML SYR IV SCH (04:56)
[2019-08-13] MEDS: LEVOTHYROXINE 50MCG TABLET (0.05MG) PO SCH (04:56)
[2019-08-13 05:39] LABS: HEMATOCRIT 39.7 % (42.0-52.0); HEMOGLOBIN 12.6 g/dl (13.5-17.5); MEAN CORPUSCULAR HEMOGLOBIN 30.4 pg (27.0-33.0); MEAN CORPUSCULAR HGB CONC 31.7 g/dl (32.0-36.5); MEAN CORPUSCULAR VOLUME 95.9 fl (80.0-96.0); PLATELET COUNT, AUTOMATED 174 10^3/uL (150-450); RED BLOOD COUNT 4.14 10^6/uL (4.30-6.10); WHITE BLOOD COUNT 8.9 10^3/uL (4.0-10.0)
[2019-08-13 06:05] LABS: BLOOD UREA NITROGEN 14 MG/DL (7-18); CALCIUM LEVEL 8.7 MG/DL (8.8-10.2); CARBON DIOXIDE LEVEL 27 MEQ/L (21-32); CHLORIDE LEVEL 111 MEQ/L (98-107); GLOMERULAR FILTRATION RATE > 60.0 (>42); GLUCOSE, FASTING 188 MG/DL (70-100); MAGNESIUM LEVEL 1.8 MG/DL (1.8-2.4); POTASSIUM SERUM 3.9 MEQ/L (3.5-5.1); SODIUM LEVEL 143 MEQ/L (136-145)
[2019-08-13] MEDS ORDERED: GLIMEPIRIDE 2 MG TAB PO SCH (07:30)
[2019-08-13] MEDS: PARoxetine 20 MG TAB PO SCH (07:44)
[2019-08-13] MEDS: CLOPIDOGREL 75 MG TAB PO SCH (07:45)
[2019-08-13] MEDS: FENOFIBRATE 145 MG TAB (TRICOR) PO SCH (07:45)
[2019-08-13] MEDS: ATORVASTATIN 20 MG TAB PO SCH (07:45)
[2019-08-13] MEDS: ALLOPURINOL 300 MG TAB PO SCH (07:45)
[2019-08-13] MEDS: HumaLOG INSULIN (NovoLOG) PER UNIT SC SCH (07:46)
[2019-08-13 07:49] VITALS: BP 152/78
[2019-08-13] MEDS: amLODIPine 5 MG TAB PO SCH (07:49)
[2019-08-13 07:59] VITALS: BP 152/78
[2019-08-13] MEDS ORDERED: LISINOPRIL 10 MG TAB PO SCH ×2 (09:00)
[2019-08-13] MEDS ORDERED: LISI10TA4 PO (09:51)
[2019-08-13] MEDS ORDERED: CLOP75TA2 PO (09:51)
[2019-08-13] MEDS ORDERED: MOM30SS2 PO (09:51)
[2019-08-13] MEDS ORDERED: AMLO5TAB6 PO (09:51)
--- NOTE | 2019-08-13 11:51 | DS.PDOC ---
Discharge Summary General Date of Admission Aug 09, 2019 at 13:51 Date of Discharge 08/13/19 Discharge Summary PROCEDURES PERFORMED DURING STAY: [None]. DISCHARGE DIAGNOSES: Acute Cerebrovascular accident with right hemiparesis in hemorrhage SECONDARY DIAGNOSIS: Hypertension, coronary artery disease (CAD) s/p AMI in 1990 , coronary artery bypass graft (CABG), hypercholesterolemia, obstructive sleep apnea (LIVIER) untreated, Coronary disease stents 1998, Hypothyroidism, Benign prostatic hypertrophy (BPH), Gastric reflux, Prostatitis. Vitamin D deficiency, Gout, Erectile dysfunction, Kidney stones , spinal cord stimulator, Type 2 diabetes, Depression. History of atrial fibrillation as per chart, COMPLICATIONS/CHIEF COMPLAINT: CVA. HISTORY OF PRESENT ILLNESS: See hsitory and physical HOSPITAL COURSE: This is a 79-year-old male with history of hypertension, coronary artery disease (CAD) s/p AMI in 1990 , coronary artery bypass graft (CABG), hypercholesterolemia, obstructive sleep apnea (LIVIER) untreated, Coronary disease stents 1998, Hypothyroidism, Benign prostatic hypertrophy (BPH), Gastric reflux, Prostatitis. Vitamin D deficiency, Gout, Erectile dysfunction, Kidney stones , spinal cord stimulator, Type 2 diabetes, Depression. History of atrial fibrillation as per chart, who presented with slurred speech, right-side weakness and ataxia noticed more than 24 hours prior to presentation to the hospital. He was found to have high-grade stenosis on the left vertebral artery Acute cerebrovascular accident (CVA) with dysphagia and right hemiparesis of unknown time of onset. CT head negative. MRI could not be done due to spinal cord stimulator. continue ASA, statin, tighter bp control. Repeat CT of the head no change. continue dysphagia treatment as per ST. No arrhythmia as in telemetry. H/o Atrial fibrillation though no fibrillation noted in several days of telemetry in the hospital Echo showed EF of 65% , Sinus bradycardia without intraventricular conduction disturbance. Occasional PVC. Borderline concentric left ventricle hypertrophy with localized proximal inferior akinetic segment consistent with prior infarction. Preserved global resting systolic function. Mildly dilated left atrium with impairment of LV diastolic dysfunction (grade 1) and current estimated mean left atrial pressure upper limits of normal. No gross valvular abnormalities. Hypertension getting controlled. will continue on amlodipine and coreg and lisinopril and adjust dosage as needed. Gout: On allopurinol. Depression: On Paxil. CAD continue ASA, statin, betablocker Dyslipidemia statin will restart fenofibrate Hypothyroid continue synthroid. DISCHARGE MEDICATIONS: Please see below. ALLERGIES: Please see below. PHYSICAL EXAMINATION ON DISCHARGE: VITAL SIGNS: Please see below. General Exam: Positive: Alert, Cooperative, No Acute Distress Eye Exam: Positive: PERRLA, Conjunctiva & lids normal, EOMI; Negative: Sclera icteric ENT Exam: Positive: Atraumatic, Mucous membr. moist/pink, Pharynx Normal Neck Exam: Positive: Supple; Negative: JVD, thyromegaly Chest Exam: Positive: Clear to auscultation, Normal air movement Heart Exam: Positive: Rate Normal, Regular Rhythm, Normal S1, Normal S2; Negative: Murmurs, Rubs Telemetry: Positive: No significant arrhythmia Abdomen Exam: Positive: Normal bowel sounds, Soft; Negative: Tenderness, Hepatospenomegaly Extremity Exam: Positive: Normal pulses; Negative: Clubbing, Cyanosis, Edema Skin Exam: Positive: Nl turgor and temperature; Negative: Rash, Breakdown Neuro Exam: Positive: Normal Tone, Other right hemiparesis with mild slurring of speech improving LABORATORY DATA: Please see below. ACTIVITY: [As tolerated]. DIET: Dysphagia level 3 DISCHARGE PLAN: ARU DISPOSITION: . DISCHARGE INSTRUCTIONS: Follow up with neurology in 1 month PMD 2 weeks after discharge DISCHARGE CONDITION: [Stable]. TIME SPENT ON DISCHARGE: 35 minutes. Vital Signs/I&Os Vital Signs Date Time Temp Pulse Resp B/P (MAP) Pulse Ox O2 Delivery O2 Flow Rate FiO2 08/13/19 07:59 97.8 69 20 152/78 (102) 96 Room Air I&O- Last 24 Hours up to 6 AM 08/13/19 06:00 Intake Total 360 ml Output Total 1025 ml Balance -665 ml Laboratory Data Labs 24H Laboratory Tests 2 08/12/19 11:48: Bedside Glucose (Misc Panel) 244H 08/12/19 16:34: Bedside Glucose (Misc Panel) 222H 08/12/19 22:41: Bedside Glucose (Misc Panel) 184H 08/13/19 05:17: Nucleated Red Blood Cells % (auto) 0.0, Anion Gap 5L, Glomerular Filtration Rate > 60.0, Calcium Level 8.7L, Magnesium Level 1.8 CBC/BMP Laboratory Tests 08/13/19 05:17 FSBS Laboratory Tests Test 08/12/19 11:48 08/12/19 16:34 08/12/19 22:41 Range/Units Bedside Glucose (Misc Panel) 244 222 184 83-110 MG/DL Microbiology Microbiology 08/10/19 Respiratory Virus Panel (PCR) ([facility]) - Final, Complete Discharge Medications Scheduled Allopurinol (Zyloprim) 300 Mg Tablet, 300 MG PO DAILY, (Reported) Amlodipine Besylate (Amlodipine Besylate) 5 Mg Tablet, 5 MG PO BID Aspirin (Aspir-Low) 81 Mg Tablet.dr, 81 MG PO QHS, (Reported) Atorvastatin Calcium (Atorvastatin Calcium) 80 Mg Tablet, 80 MG PO DAILY, (Reported) Carvedilol (Carvedilol) 3.125 Mg Tablet, 3.125 MG PO BID, (Reported) 0400 AND 1600 Clopidogrel Bisulfate (Clopidogrel) 75 Mg Tablet, 75 MG PO DAILY Fenofibrate,Micronized (Fenofibrate) 134 Mg Capsule, 134 MG PO DAILY, (Reported) Glipizide (Glipizide) 5 Mg Tablet, 5 MG PO QID, (Reported) Levothyroxine Sodium (Levothyroxine Sodium) 50 Mcg Tablet, 50 MCG PO DAILY, (Reported) Lisinopril (Lisinopril) 10 Mg Tablet, 10 MG PO BID Multivitamin (Multivitamins) 1 Each Capsule, 1 CAP PO DAILY, (Reported) Paroxetine HCl (Paroxetine HCl) 40 Mg Tablet, 40 MG PO DAILY, (Reported) Pioglitazone HCl (Pioglitazone HCl) 15 Mg Tablet, 15 MG PO DAILY, (Reported) Vitamin D (Vitamin D3) 1,000 Unit Tablet, 1,000 UNITS PO DAILY, (Reported) Scheduled PRN Magnesium Hydroxide (Milk of Magnesia) 400 Mg/5 Ml Oral.susp, 30 ML PO DAILY PRN for CONSTIPATION Allergies Coded Allergies: No Known Drug Allergies (Verified Allergy, Unknown, 08/09/19) GHADA PAPPAS MD Aug 13, 2019 11:51
== END 2019-08-13 11:50 | DRG 65 ==
LOC: M ED 10:44 → M ED INP 13:51 → M PCU 15:13
PROVIDERS: ADMIT General Practice; ATTEND Internal Medicine Nephrology
DX: I63.9 Cerebral infarction, unspecified (principal); G81.91 Hemiplegia, unspecified affecting right dominant side; I67.2 Cerebral atherosclerosis; E03.9 Hypothyroidism, unspecified; N40.1 Benign prostatic hyperplasia with lower urinary tract symptoms; G47.33 Obstructive sleep apnea (adult) (pediatric); K21.9 Gastro-esophageal reflux disease without esophagitis; N41.9 Inflammatory disease of prostate, unspecified; M10.9 Gout, unspecified; E55.9 Vitamin D deficiency, unspecified; Z66 Do not resuscitate; N52.9 Male erectile dysfunction, unspecified; E78.00 Pure hypercholesterolemia, unspecified; E78.5 Hyperlipidemia, unspecified; E11.9 Type 2 diabetes mellitus without complications; F32.9 Major depressive disorder, single episode, unspecified; R29.810 Facial weakness; R13.10 Dysphagia, unspecified; I25.10 Atherosclerotic heart disease of native coronary artery without angina pectoris; R47.81 Slurred speech; I65.23 Occlusion and stenosis of bilateral carotid arteries; R27.0 Ataxia, unspecified; I48.91 Unspecified atrial fibrillation; Z95.5 Presence of coronary angioplasty implant and graft; Z87.442 Personal history of urinary calculi; Z79.82 Long term (current) use of aspirin; Z79.84 Long term (current) use of oral hypoglycemic drugs; Z79.899 Other long term (current) drug therapy; Z87.891 Personal history of nicotine dependence

== ENCOUNTER 2019-08-31 13:00 | Outpatient (RCR) | payer MEDICARE ==
[~2019-08-31 13:00] MED LIST: AMLO5TAB6 PO; AMOX500T PO; ASPI81TA21 PO; ASPI81TAEC PO; ATOR1TAB21 PO; ATOR80TA59 PO; CARV3.12 PO; CHOL100029 PO; CLOP75TA2 PO; CYMB1CAP4 PO; FENO134C PO; FENO145T13 PO; GLIP5TAB8 PO; LEVO50TA5 PO; LISI-538 PO; LISI10TA4 PO; MOM30SS2 PO; MULTCAP PO; PARO20TA3 PO; PARO40TA2 PO; PIOG1TAB36 PO; ZYLO300T6 PO
== END 2019-09-08 ==
LOC: M PT 13:00
PROVIDERS: ATTEND General Practice
DX: Z86.73 Personal history of transient ischemic attack (TIA), and cerebral infarction without residual deficits (principal)

== ENCOUNTER 2019-10-07 13:12 | Outpatient (RCR) | payer MEDICARE ==
[~2019-10-07 13:12] MED LIST changes: -FENO145T13 PO; +FENO145T7 PO
== END 2019-10-09 ==
LOC: M PT 13:12
PROVIDERS: ATTEND General Practice
DX: R26.89 Other abnormalities of gait and mobility (principal)

== ENCOUNTER 2019-10-21 13:24 | Outpatient (RCR) | payer MEDICARE | END 2019-11-07 | LOC: M PT 13:24 | PROVIDERS: ATTEND General Practice | DX: Z51.89 Encounter for other specified aftercare (principal); I63.9 Cerebral infarction, unspecified ==

== ENCOUNTER 2020-01-07 09:47 | Inpatient (IN) | payer MEDICARE ==
[~2020-01-07] VITALS: Ht 172.7 cm; Wt 80.4 kg
[2020-01-07] MEDS ORDERED: CHOL50003 PO (11:11)
[2020-01-07] MEDS ORDERED: PIOG1TAB36 PO (11:11)
[2020-01-07] MEDS ORDERED: LEVO50TA5 PO (11:11)
[2020-01-07] MEDS ORDERED: AMLO5TAB6 PO (11:11)
[2020-01-07] MEDS ORDERED: FENO145T7 PO (11:11)
[2020-01-07] MEDS ORDERED: LISI-538 PO (11:11)
[2020-01-07] MEDS ORDERED: ATOR80TA59 PO (11:11)
[2020-01-07] MEDS ORDERED: THERTAB20 PO (11:11)
[2020-01-07] MEDS ORDERED: ACET1TAB55 PO (11:11)
[2020-01-07] MEDS ORDERED: ZYLO300T6 PO (11:11)
[2020-01-07] MEDS ORDERED: LIDO5TD TOP (11:11)
[2020-01-07] MEDS ORDERED: CARV3.12 PO (11:11)
[2020-01-07] MEDS ORDERED: GLIP5TAB8 PO (11:11)
[2020-01-07] MEDS ORDERED: PARO40TA3 PO (11:11)
[2020-01-07] MEDS ORDERED: GNP8.6TA PO (11:13)
[2020-01-07 11:15] VITALS: BP 142/82
[2020-01-07] MEDS ORDERED: INSUHUMDS SC (11:18)
[2020-01-07 14:00] VITALS: BP 111/56
[2020-01-07] MEDS ORDERED: ACETAMINOPHEN TAB 650MG DOSE (2X325MG) PO PRN (14:15)
[2020-01-07] MEDS ORDERED: GLUCAGON INJ 1MG VIAL SC PRN (14:15)
[2020-01-07] MEDS ORDERED: BISACODYL 10 MG SUPP PR PRN (14:15)
[2020-01-07] MEDS ORDERED: DEXTROSE 50% 50 ML SYRINGE IV PRN (14:15)
[2020-01-07] MEDS ORDERED: oxyCODONE 5MG TAB PO PRN (14:15)
[2020-01-07] MEDS ORDERED: GLUCOSE 4GM CHEW TABLET PO PRN (14:15)
[2020-01-07] MEDS: REMEDY PHYTOPLEX Z-GUARD PASTE 113GM TUBE (FROM STOREROOM PRODUCT) TOP SCH ×2 (15:48→20:44)
--- NOTE | 2020-01-07 15:52 | HPEPDOC ---
Sales Enablement Manager Note DATE OF ADMISSION: 01-07-20 DATE OF SERVICE: 01-07-20 TIME OF ADMISSION: Please refer to physician's admission order. SOURCE OF ADMISSION INFORMATION: [facility] records and patient CHIEF COMPLAINT: subdural hematoma HISTORY OF PRESENT ILLNESS: 79M pmh CVA with residual right sided weakness, chronic diastolic CHF, HLD, CAD, HTN, DM, was on Aspirin and Plavix at home with increasing falls at home with dizziness and was admitted to [facility] 01-04-20 for a subdural hematoma. 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 Neurosurgery admitted him and he underwent a left subdural hematoma evacuation with a SEPS (subdural evacuating port system) placement. His aspirin and Plavix were held until follow-up neurosurgery eval as outpatient. He was evaluated by therapy, noted to have new deficits in mobility and ADLs and deemed medically appropriate for discharge to ARU on 01-07-20. REVIEW OF SYSTEMS: The following is a completed review of systems and has been reviewed. Review of systems otherwise unremarkable. PAIN: Patient self reports no pain EYES: No recent vision changes EARS, NOSE, & THROAT: No throat pain, or dysphagia, or rhinorrhea CARDIOVASCULAR: Denies chest pain or palpitations PULMONARY: Denies shortness of breath GASTROINTESTINAL: Denies constipation/diarrhea GENITOURINARY: denies dysuria MUSCULOSKELETAL: generalized weakness NEUROLOGICAL:mild right sided paresis HEMATOLOGICAL: denies easy bruising SKIN: left frontal incision PSYCHIATRIC: Unremarkable All other review of systems found to be negative. PAST MEDICAL HISTORY: as per HPI PAST SURGICAL HISTORY: Back surgery, CABG, spinal cord stimulator ALLERGIES: Please see below. MEDICATIONS: Please see below. FAMILY HISTORY: Cancer and cardiac SOCIAL HISTORY: Ex-smoker, +ETOH, no illicit drugs DIET: low sodium, fluid restrict PHYSICAL EXAMINATION: VITAL SIGNS: Please see below. GENERAL: Pleasant and cooperative. No acute distress. HEENT: PERRL. Extraocular movements intact. Clear conjunctiva, mild right sided facial droop CARDIOVASCULAR: Regular rate and rhythm. No murmurs, rubs, or gallops LUNGS: Clear to auscultation bilaterally. No wheezes. No rhonchi ABDOMEN: Soft, nontender, nondistended. Positive bowel sounds. Normal active bowel sounds NEUROLOGICAL: Alert and oriented times three. Cranial nerves II through XII grossly intact. Sensation grossly intact (-) clonus bilat +mild dysmetria with finger to nose on the left EXTREMITIES: 5\5 strength bilateral upper extremities. 5\5 strength right lower extremity.5/5 strength in left lower extremity SKIN: left frontal sutures c/d/i, no sacral erythema LABORATORY DATA: Please see below. IMAGING:Imaging documentation personally reviewed by record. FUNCTIONAL STATUS: Premorbid:Independent with all activities of daily life as well as mobility On Admission: requiring min assist for bed mobility, ambulation, functional transfers, dressing, toileting GOALS: Mod-I community distances with RW, stairs, dressing, bathing, toileting, fall recovery, medical optimization ASSESSMENT:79-year-old M with past medical history of CVA who presents status post SDH PLAN: 1. Rehab- PT/OT advance gait and ADL training, fall recovery, dynamic balance training -MANAGER RELIABILITY for cognition and swallow eval 2. Neuro: hx of CVA with right sided residual paresis - sequelae of stroke likely leading to falls and new finding of left sided subdural hematomas s/p evacuation, c/u off Asa and Plavix, f/u neurosurgery with Dr. Blank-January 27 (repeat imaging scheduled same day) -avoid strenuous activity, will keep head of bed elevated to 30 degrees -c/u Paroxetine SSRI in setting of recent stroke 3. Cardiac: chronic diastolic CHF- daily weights, fluid restrict, monitor for fluid overload- medicine consulted to assist in overall management -HTN c/u lisinopril, amlodipine -CAD c/u carvedilol- Antiplatelets on hold in setting of recent falls with SDH -HLD- c/u Tricor and statin 4. Resp: encourage incentive spirometry, monitor for infection 5. Endo: hypothyroidism c/u Synthroid, DM c/u glipizide, ISS 6. GI ppx: omeprazole 7. DVT ppx: TEDs, will order admission Doppler and avoid chemoprophylaxis in setting of SDH 8. Pain: Tylenol and oxycodone prn 9. Dispo: TBD POST ADMISSION PHYSICIAN EVALUATION: Medical and functional status: Description of medical status, medical assessment: As above. Rehabilitation diagnosis and current and prior cold morbid medical conditions as above. Risk of complications and plans to mitigate them as above. Description of functional status current status is as above. Prior status as above. Status compared to preadmission: There are no clinically significant differences between the patient's current status and the information described on the preadmission screening document. Treatment plan anticipated: Treatment plan is as described above. Required disciplines including physical therapy, occupational therapy, others as noted above. Intensity of services: 3 hours a day, 6 days a week. Special considerations: There are no specific special or safety considerations that would likely preclude immediate implementation of an intensive rehabilitation program or subsequently influence the plan of care. ATTESTATION: Considering all the information above, it is my best judgment that this patient requires intensive rehabilitation therapy as described above and an inpatient hospital environment due to the complexity of nursing, medical, and rehabilitation needs required by the patient. Furthermore, this patient can reasonably be expected to participate in an benefit from an inpatient rehabilitation stay with an interdisciplinary team approach to the delivery of rehabilitation care under the direction and supervision of rehabilitation physician. PROGNOSIS:good ESTIMATED LENGTH OF STAY: 10-14 days. PROJECTED DISCHARGE DESTINATION: Home with family support and any durable medical equipment required to increase functional safety and mobility TIME SPENT COUNSELING AND COORDINATING INITIAL CARE: Greater than 70 minutes. Vital Signs Vital Sign - Last 24 Hours 01/07/20 01/07/20 11:15 14:00 Temp 97.6 97.9 Pulse 76 68 Resp 18 18 B/P (MAP) 142/82 (102) 111/56 (74) Pulse Ox 99 98 O2 Delivery Room Air Room Air Laboratory Data Labs 24H Laboratory Tests 2 01/07/20 11:15: Coronavirus (COVID-19)(PCR) NEGATIVE Home Medications Scheduled Allopurinol (Zyloprim) 300 Mg Tablet, 300 MG PO DAILY, (Reported) Amlodipine Besylate (Amlodipine Besylate) 5 Mg Tablet, 5 MG PO BID, (Reported) Atorvastatin Calcium (Atorvastatin Calcium) 80 Mg Tablet, 80 MG PO QHS, (Reported) Carvedilol (Carvedilol) 3.125 Mg Tablet, 3.125 MG PO BID, (Reported) Cholecalciferol (Vitamin D3) (Vitamin D3) 125 Mcg Capsule, 5,000 UNITS PO DAILY, (Reported) Fenofibrate Nanocrystallized (Fenofibrate) 145 Mg Tablet, 145 MG PO DAILY, (Reported) Glipizide (Glipizide) 5 Mg Tablet, 10 MG PO BID, (Reported) Insulin Human Lispro (Humalog) 100 Unit/1 Ml Vial, 1 DOSE SC AC, (Reported) PER SLIDING SCALE, GIVEN AT [facility] Levothyroxine Sodium (Levothyroxine Sodium) 50 Mcg Tablet, 50 MCG PO DAILY, (Reported) Lidocaine (Lidocaine) 5% Adh..patch, 2 PATCH TOP DAILY, (Reported) APPLIED TO RIGHT RIBS Lisinopril (Lisinopril) 20 Mg Tablet, 20 MG PO BID, (Reported) Multivit,Calc,Mins/Iron/Folic (Thera-M Tablet) 1 Each Tablet, 1 TAB PO DAILY, (Reported) Paroxetine HCl (Paroxetine) 40 Mg Tablet, 40 MG PO DAILY, (Reported) Pioglitazone HCl (Pioglitazone HCl) 15 Mg Tablet, 15 MG PO DAILY, (Reported) Scheduled PRN Acetaminophen (Acetaminophen) 325 Mg Tablet, 650 MG PO Q6H PRN for PAIN, (Reported) Sennosides (Senna Lax) 8.6 Mg Tablet, 2 TAB PO QHS PRN for CONSTIPATION, (Reported) Allergies Coded Allergies: No Known Drug Allergies (Verified Allergy, Unknown, 08/09/19) A-FIB/CHADSVASC A-FIB History Current/History of A-Fib/PAF?: No ART GIANG MD Jan 07, 2020 15:52
--- NOTE | 2020-01-07 17:04 | REP ---
Duplex extremity venous ultrasound: Bilateral lower extremity veins. History: Immobility. Findings: The deep veins are anechoic and fully compressible from the groin to the popliteal fossa in the left and right lower extremity. Color flow imaging is homogeneous. Spectral Doppler interrogation demonstrates intact respiratory variation in flow and normal manual augmentation of flow. There is no evidence of deep vein thrombosis. Impression: Negative bilateral lower extremity duplex venous ultrasound. No evidence of deep vein thrombosis. Electronically Signed by Sulaiman Hernandez MD 01/07/2020 04:56 P
[2020-01-07] MEDS: glipiZIDE (GLUCOTROL) 5 MG TAB PO SCH (18:26)
[2020-01-07] MEDS: HumaLOG INSULIN (NovoLOG) PER UNIT SC SCH ×2 (18:27→20:44)
[2020-01-07 20:00] VITALS: BP 95/54
[2020-01-07] MEDS: ATORVASTATIN 20 MG TAB PO SCH (20:43)
[2020-01-07] MEDS: DOCUSATE SODIUM 100 MG CAP PO SCH (20:43)
[2020-01-07] MEDS: SENNA 8.6 MG TAB (SENOKOT) PO SCH (20:43)
[2020-01-07] MEDS: amLODIPine 5 MG TAB PO SCH (20:45)
[2020-01-07] MEDS: CARVedilol 3.125 MG TAB PO SCH (20:45)
[2020-01-07] MEDS: lisinopriL 20 MG TAB PO SCH (20:46)
[2020-01-08 06:00] VITALS: BP 148/69
[2020-01-08] MEDS: LEVOTHYROXINE 50MCG TABLET (0.05MG) PO SCH (06:02)
[2020-01-08 08:06] LABS: BASO # 0.1 10^3/uL (0.0-0.2); BASO % 0.7 % (0.0-1.0); EOS # 0.7 10^3/uL (0.0-0.5); EOS % 4.7 % (0.0-3.0); HEMATOCRIT 42.7 % (42.0-52.0); HEMOGLOBIN 13.9 g/dl (13.5-17.5); LYMPH # 3.5 10^3/uL (1.5-5.0); LYMPH % 25.1 % (24.0-44.0); MEAN CORPUSCULAR HEMOGLOBIN 30.8 pg (27.0-33.0); MEAN CORPUSCULAR HGB CONC 32.6 g/dl (32.0-36.5); MEAN CORPUSCULAR VOLUME 94.5 fl (80.0-96.0); MONO # 1.4 10^3/uL (0.0-0.8); NEUTROPHILS # 8.1 10^3/uL (1.5-8.5); PLATELET COUNT, AUTOMATED 283 10^3/uL (150-450); RED BLOOD COUNT 4.52 10^6/uL (4.30-6.10); WHITE BLOOD COUNT 13.7 10^3/uL (4.0-10.0)
[2020-01-08] MEDS: FENOFIBRATE 145 MG TAB (TRICOR) PO SCH (08:29)
[2020-01-08] MEDS: HumaLOG INSULIN (NovoLOG) PER UNIT SC SCH ×4 (08:29→21:26)
[2020-01-08] MEDS: VITAMIN D 1,000 INTERNATIONAL UNITS TABLET PO SCH (08:30)
[2020-01-08] MEDS: glipiZIDE (GLUCOTROL) 5 MG TAB PO SCH ×2 (08:30→16:56)
[2020-01-08 08:31] LABS: ALBUMIN 3.8 GM/DL (3.2-5.2); BILIRUBIN,TOTAL 0.7 MG/DL (0.2-1.0); CALCIUM LEVEL 9.6 MG/DL (8.8-10.2); CREATININE FOR GFR 1.27 MG/DL (0.70-1.30); GLOMERULAR FILTRATION RATE 58.4 (>42); TOTAL PROTEIN 8.1 GM/DL (6.4-8.2)
[2020-01-08] MEDS: MULTIVITAMINS/MINERALS THERAP 1 TAB PO SCH (08:31)
[2020-01-08] MEDS: lisinopriL 20 MG TAB PO SCH ×2 (08:31→21:26)
[2020-01-08] MEDS: OMEPRAZOLE 20 MG CAP PO SCH (08:31)
[2020-01-08] MEDS: allopurinoL 300 MG TAB PO SCH (08:31)
[2020-01-08] MEDS: CARVedilol 3.125 MG TAB PO SCH ×2 (08:31→21:26)
[2020-01-08] MEDS: DOCUSATE SODIUM 100 MG CAP PO SCH ×2 (08:32→21:24)
[2020-01-08] MEDS: amLODIPine 5 MG TAB PO SCH ×2 (08:33→21:25)
[2020-01-08] MEDS: REMEDY PHYTOPLEX Z-GUARD PASTE 113GM TUBE (FROM STOREROOM PRODUCT) TOP SCH ×3 (08:33→21:00)
[2020-01-08] MEDS ORDERED: PARoxetine 20 MG TAB PO SCH ×2 (09:00)
[2020-01-08] MEDS ORDERED: DULoxetine 30 MG CAP (CYMBALTA) PO SCH (09:00)
[2020-01-08] MEDS: LEVEMIR (INSULIN DETEMIR) 1 UNITS/0.01ML SC SCH (09:00)
[2020-01-08 14:00] VITALS: BP 135/70
--- NOTE | 2020-01-08 14:22 | IPNPDOC ---
PM&R Progress Note DATE OF SERVICE: January 08, 2020 Die Trouble Shooter Progress Note Subjective: Patient reporting he feels depressed and is interested in going up on his antidepressant. He is worried about not being able to ride his motorcycle. REVIEW OF SYSTEMS: The following is a completed review of systems and has been reviewed. Review of systems otherwise unremarkable. PAIN: Patient self reports no pain EYES: No recent vision changes EARS, NOSE, & THROAT: No throat pain, or dysphagia, or rhinorrhea CARDIOVASCULAR: Denies chest pain or palpitations PULMONARY: Denies shortness of breath GASTROINTESTINAL: Denies constipation/diarrhea GENITOURINARY: denies dysuria MUSCULOSKELETAL: generalized weakness NEUROLOGICAL:mild right sided paresis HEMATOLOGICAL: denies easy bruising SKIN: left frontal incision PSYCHIATRIC: Unremarkable All other review of systems found to be negative. PHYSICAL EXAMINATION: VITAL SIGNS: Please see below. GENERAL: Pleasant and cooperative. No acute distress. HEENT: PERRL. Extraocular movements intact. Clear conjunctiva, mild right sided facial droop CARDIOVASCULAR: Regular rate and rhythm. No murmurs, rubs, or gallops LUNGS: Clear to auscultation bilaterally. No wheezes. No rhonchi ABDOMEN: Soft, nontender, nondistended. Positive bowel sounds. Normal active bowel sounds NEUROLOGICAL: Alert and oriented times three. Cranial nerves II through XII grossly intact. Sensation grossly intact (-) clonus bilat +mild dysmetria with finger to nose on the left EXTREMITIES: 5\5 strength bilateral upper extremities. 5\5 strength right lower extremity.5/5 strength in left lower extremity SKIN: left frontal sutures c/d/i, no sacral erythema ASSESSMENT:79-year-old M with past medical history of CVA who presents status post SDH PLAN: 1. Rehab- PT/OT advance gait and ADL training, fall recovery, dynamic balance training, ambulating with RW -APPRAISER AUDITOR for cognition and swallow eval 2. Neuro: hx of CVA with right sided residual paresis - sequelae of stroke likely leading to falls and new finding of left sided subdural hematomas s/p evacuation, c/u off Asa and Plavix, f/u neurosurgery with Dr. Blank-January 27 (repeat imaging scheduled same day) -avoid strenuous activity, will keep head of bed elevated to 30 degrees -c/u Paroxetine SSRI in setting of recent stroke, patient reoprting hx of depression but had stopped taking meds, will increase dose to 40mg 3. Cardiac: chronic diastolic CHF- daily weights, fluid restrict, monitor for fluid overload- medicine consulted to assist in overall management -HTN c/u lisinopril, amlodipine -CAD c/u carvedilol- Antiplatelets on hold in setting of recent falls with SDH -HLD- c/u Tricor and statin 4. Resp: encourage incentive spirometry, monitor for infection 5. Endo: hypothyroidism c/u Synthroid, DM c/u glipizide, ISS -daily levemir ordered to elevated FS, c/u to manage and adjust prn 6. GI ppx: omeprazole 7. DVT ppx: TEDs, admission Dopplers negative, c/u to avoid chemoprophylaxis in setting of SDH 8. Pain: Tylenol and oxycodone prn 9. Dispo: TBD Allergies Coded Allergies: No Known Drug Allergies (Verified Allergy, Unknown, 08/09/19) Vital Signs Vital Signs Date Time Temp Pulse Resp B/P (MAP) Pulse Ox O2 Delivery O2 Flow Rate FiO2 01/08/20 06:00 98.1 63 16 148/69 (95) 94 Room Air Laboratory Data CBC/BMP Laboratory Tests 01/08/20 07:26 Labs 24H Laboratory Tests 2 01/07/20 17:11: Bedside Glucose (Misc Panel) 232H 01/07/20 19:36: Bedside Glucose (Misc Panel) 334H 01/08/20 06:21: Bedside Glucose (Misc Panel) 160H 01/08/20 07:26: Immature Granulocyte % (Auto) 0.5, Neutrophils (%) (Auto) 59.0, Lymphocytes (%) (Auto) 25.1, Monocytes (%) (Auto) 10.0H, Eosinophils (%) (Auto) 4.7H, Basophils (%) (Auto) 0.7, Neutrophils # (Auto) 8.1, Lymphocytes # (Auto) 3.5, Monocytes # (Auto) 1.4H, Eosinophils # (Auto) 0.7H, Basophils # (Auto) 0.1, Nucleated Red Blood Cells % (auto) 0.0, Anion Gap 7L, Glomerular Filtration Rate 58.4, Calcium Level 9.6, Total Bilirubin 0.7, Aspartate Amino Transf (AST/SGOT) 19, Alanine Aminotransferase (ALT/SGPT) 30, Alkaline Phosphatase 61, Total Protein 8.1, Albumin 3.8, Albumin/Globulin Ratio 0.88L 01/08/20 12:08: Bedside Glucose (Misc Panel) 352H Current Medications Current Medications Current Medications Medications (Trade) Dose Ordered Sig/Olga Route PRN Reason Start Time Stop Time Status Last Admin Dose Admin Acetaminophen (Tylenol Tab) 650 mg Q4HP PRN PO fever/MILD PAIN (PS 1-4) 01/07/20 14:15 01/08/20 08:32 Allopurinol (Zyloprim) 300 mg DAILY PO 01/08/20 09:00 01/08/20 08:31 Amlodipine Besylate (Norvasc) 5 mg BID PO 01/07/20 21:00 01/08/20 08:33 Atorvastatin Calcium (Lipitor) 80 mg QHS PO 01/07/20 21:00 01/07/20 20:43 Bisacodyl (Dulcolax Suppository) 10 mg DAILYPRN PRN [place] CONSTIPATION 01/07/20 14:15 Carvedilol (COReg) 3.125 mg BID PO 01/07/20 21:00 01/08/20 08:31 Dextrose (Dextrose 50%) 25 ml ASDIRECTED PRN IV SEE LABEL COMMENTS 01/07/20 14:15 Docusate Sodium (Colace) 100 mg BID PO 01/07/20 21:00 01/08/20 08:32 Duloxetine HCl (Cymbalta) 60 mg DAILY PO 01/08/20 09:00 01/07/20 15:12 DC Fenofibrate (Tricor) 145 mg DAILY PO 01/08/20 09:00 01/08/20 08:29 Glipizide (Glucotrol) 10 mg BID@0730,1730 PO 01/07/20 17:30 01/08/20 08:30 Glucagon (Glucagon) 1 mg ASDIRECTED PRN SC SEE LABEL COMMENTS 01/07/20 14:15 Glucose (Glucose) 16 GM ASDIRECTED PRN PO SEE LABEL COMMENTS 01/07/20 14:15 Home Med (Med Rec Complete!) ASDIRECTED XX 01/07/20 11:30 01/07/20 11:19 DC Insulin Detemir (Levemir Insulin) 5 units DAILY SC 01/08/20 09:00 Insulin Human Lispro (HumaLOG INSULIN) SEE PROTOCOL TABLE AC SC 01/07/20 17:30 01/08/20 12:21 Insulin Human Lispro (HumaLOG INSULIN) SEE PROTOCOL TABLE QHS SC 01/07/20 21:00 01/07/20 20:44 Levothyroxine Sodium (Synthroid) 50 mcg DAILY@06 PO 01/08/20 06:00 01/08/20 06:02 Lisinopril (Prinivil) 20 mg BID PO 01/07/20 21:00 01/08/20 08:31 Multivitamins (Theragram-M) 1 tab DAILY PO 01/08/20 09:00 01/08/20 08:31 Omeprazole (PriLOSEC) 20 mg DAILY PO 01/08/20 09:00 01/08/20 08:31 Oxycodone HCl (Roxicodone, Oxyir) 5 mg Q6HP PRN PO PAIN 01/07/20 14:15 Paroxetine HCl (PAXil) 20 mg DAILY PO 01/08/20 09:00 01/08/20 08:31 Paroxetine HCl (PAXil) 40 mg DAILY PO 01/08/20 09:00 01/07/20 15:06 DC Senna (Senokot) 1 tab QHS PO 01/07/20 21:00 01/07/20 20:43 Vitamin D (Vitamin D) 5,000 units DAILY PO 01/08/20 09:00 01/08/20 08:30 ART GIANG MD January 08, 2020 14:22
[2020-01-08 20:00] VITALS: BP 136/74
[2020-01-08] MEDS: ATORVASTATIN 20 MG TAB PO SCH (21:24)
[2020-01-08] MEDS: SENNA 8.6 MG TAB (SENOKOT) PO SCH (21:25)
[2020-01-09 04:00] VITALS: BP 147/80
[2020-01-09] MEDS: LEVOTHYROXINE 50MCG TABLET (0.05MG) PO SCH (06:24)
[2020-01-09] MEDS: glipiZIDE (GLUCOTROL) 5 MG TAB PO SCH ×2 (07:50→16:59)
[2020-01-09] MEDS: HumaLOG INSULIN (NovoLOG) PER UNIT SC SCH ×4 (07:51→20:37)
[2020-01-09] MEDS: PARoxetine 20 MG TAB PO SCH (08:36)
[2020-01-09] MEDS: amLODIPine 5 MG TAB PO SCH ×2 (08:37→20:36)
[2020-01-09] MEDS: OMEPRAZOLE 20 MG CAP PO SCH (08:37)
[2020-01-09] MEDS: lisinopriL 20 MG TAB PO SCH ×2 (08:38→20:35)
[2020-01-09] MEDS: MULTIVITAMINS/MINERALS THERAP 1 TAB PO SCH (08:38)
[2020-01-09] MEDS: FENOFIBRATE 145 MG TAB (TRICOR) PO SCH (08:39)
[2020-01-09] MEDS: allopurinoL 300 MG TAB PO SCH (08:39)
[2020-01-09] MEDS: VITAMIN D 1,000 INTERNATIONAL UNITS TABLET PO SCH (08:39)
[2020-01-09] MEDS: LEVEMIR (INSULIN DETEMIR) 1 UNITS/0.01ML SC SCH (08:40)
[2020-01-09] MEDS: CARVedilol 3.125 MG TAB PO SCH ×2 (08:41→20:36)
[2020-01-09] MEDS: DOCUSATE SODIUM 100 MG CAP PO SCH ×2 (08:41→20:36)
[2020-01-09] MEDS: REMEDY PHYTOPLEX Z-GUARD PASTE 113GM TUBE (FROM STOREROOM PRODUCT) TOP SCH ×3 (08:48→20:37)
--- NOTE | 2020-01-09 11:39 | CR ---
DATE OF CONSULTATION: 01/08/2020 REFERRING PHYSICIAN: Dr. Lillie Wolfe REASON FOR CONSULT: Management of chronic medical problems. 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 CT of the head was negative. MRI could not be done due to spinal cord stimulator. Patient was continued on aspirin and statin. Patient was kept on a dysphagia diet per speech therapy. His atrial fibrillation was not detected on telemetry for several days. Echo showed ejection fraction (EF) of 65% with sinus bradycardia and occasional premature ventricular contractions (PVCs). LDH with grade 1 diastolic dysfunction. He was kept on Norvasc and Coreg, lisinopril and adjusted accordingly. He was seen by Dr. Chiquita Nelson, Neurologist, on 08/11/2019 at which time he recommended aspirin and Plavix due to high-grade stenosis without evidence of stroke on CT. After starting anticoagulation, patient can discontinue his Plavix and remain on aspirin, and to continue on Lipitor 80 mg daily. Patient then was admitted August 13 at [facility] and discharged August 20 by acute rehab unit (ARU). Patient complains of dysphagia with liquids but was stable on solids. He was modified independent with a four-wheeled rolling walker and ambulated 500 feet with contact guard, and was subsequently discharged. The patient then presented to [facility] on 01/04/2020 with complaints of dizziness, increasing falls at home, was found to have a subacute on chronic subdural hematoma along the left cerebellar convexity with mass effect on the sulci and lateral ventricle, and a midline shift of 3 mm to the right. He was admitted by neurosurgery, underwent a left subdural hematoma evacuation with subdural evacuating port system placement. His aspirin and Plavix were held until he follows up as an outpatient. Patient was then admitted to ARU on 01/07/2020 and hospitalist was asked to consult for management of his chronic medical issues. PAST MEDICAL HISTORY: Subdural hematoma in the setting of aspirin and Plavix, high-grade stenosis with no documented CVA with continued right-sided weakness, chronic diastolic heart failure, hyperlipidemia, coronary artery disease, hypertension, diabetes, hypothyroidism, dyslipidemia. PAST SURGICAL HISTORY: Back surgery, coronary artery bypass graft (CABG), spinal cord stimulator, subdural evacuating port system placement for a left subdural hematoma done 01/04/2020 at [facility]. ALLERGIES: No known drug allergies. HOSPITAL MEDICATIONS: - omeprazole 20 mg daily - multivitamin one tablet daily - allopurinol 300 mg daily - Tricor 145 mg daily - vitamin D 5000 units daily - Paxil 20 mg daily - Levemir insulin 5 units subcu daily HOME MEDICATIONS: - Synthroid 50 mcg daily - Colace 100 mg twice a day - Senokot one tablet nightly - Norvasc 5 mg twice a day - atorvastatin 80 mg nightly - Coreg 3.125 mg twice a day - lisinopril 20 mg twice a day - glipizide 10 mg twice a day - insulin sliding scale - acetaminophen 650 mg by mouth every 4 hours - hypoglycemic protocol - oxycodone 5 mg every 6 hours as needed for pain SOCIAL HISTORY: No recreational drug use. DO NOT INTUBATE. is healthcare proxy, [phone], lives at home with his . Finished high school. No alcohol use. Retired supervisor food checkers and cashiers. Former smoker, quit in 1983. REVIEW OF SYSTEMS: Per history of the present illness; 12-point system otherwise negative. PHYSICAL EXAMINATION: Temperature 98.1, pulse 63, respiratory rate 16, blood pressure 148/69, 94% on room air. Generally, patient is awake, alert, oriented to person, place and time. Answers questions appropriately. The patient has a right-sided facial droop. Tongue is midline. Lungs are clear to auscultation. No wheezing, rales or rhonchi. Heart: S1, S2, sinus rhythm. Abdomen is soft, nontender, nondistended. Positive bowel sounds times four quadrants. No rebound or guarding. Extremities: No cyanosis, clubbing or pitting edema. Neurologic Exam: Awake, alert, oriented times three, answering questions appropriately. Patient has some mild right-sided facial droop with some dysmetria on [id number] testing, 5/5 strength times four extremities with no sensory disturbance. Gait was not tested. LABORATORY DATA: White count 13, hemoglobin 13, hematocrit 42, platelet count 283, 59% neutrophils. Sodium 139, potassium 4, chloride 107, bicarbonate 25, BUN 29, creatinine 1.27, glucose of 209, calcium 9.6, total bilirubin 0.7, AST 19, ALT 30, alkaline phosphatase 61, total protein 8.1. Serology: COVID-19 is negative. Glucose 352. IMAGING STUDIES: Venous Doppler: Negative bilateral lower extremity venous Doppler. No evidence of deep vein thrombosis (DVT). ASSESSMENT AND PLAN: This is a 79-year-old male with a history of high-grade stenosis treated with aspirin and Plavix due to right-sided weakness, found to have a subdural hematoma on 01/04/2020, status post subdural evacuating port system placement at [facility], chronic diastolic heart failure with congestive heart failure (CHF), admitted to acute rehab. CURRENT ISSUES: 1. Subdural hematoma. Currently off aspirin and Plavix. ARU admit. Neurosurgical followup as outpatient. 2. History of diastolic heart failure. Currently compensated. Appears to be euvolemic. He has been continued on his home dose of Coreg and lisinopril. Will monitor for hypotension, to hold for systolic pressure less than 110, type 2 diabetes - on glipizide 10 mg twice a day, sliding scale and hypoglycemic protocol, as well as Levemir 5 units subcu daily. 3. Hypothyroidism. Continued on 50 mcg daily of levothyroxine. 4. Reflux. On chronic proton pump inhibitor (PPI). 5. History of high-grade stenosis, off aspirin and Plavix due to recent subdural hematoma. 6. Deep vein thrombosis prophylaxis with compression stockings. MTDD
[2020-01-09 14:00] VITALS: BP 141/68
[2020-01-09 20:02] VITALS: BP 138/62
[2020-01-09] MEDS: SENNA 8.6 MG TAB (SENOKOT) PO SCH (20:35)
[2020-01-09] MEDS: ATORVASTATIN 20 MG TAB PO SCH (20:36)
[2020-01-10] MEDS: LEVOTHYROXINE 50MCG TABLET (0.05MG) PO SCH (06:25)
[2020-01-10 06:42] VITALS: BP 142/67
[2020-01-10] MEDS: REMEDY PHYTOPLEX Z-GUARD PASTE 113GM TUBE (FROM STOREROOM PRODUCT) TOP SCH ×3 (08:27→21:51)
[2020-01-10] MEDS: OMEPRAZOLE 20 MG CAP PO SCH (08:28)
[2020-01-10] MEDS: MULTIVITAMINS/MINERALS THERAP 1 TAB PO SCH (08:28)
[2020-01-10] MEDS: VITAMIN D 1,000 INTERNATIONAL UNITS TABLET PO SCH (08:28)
[2020-01-10] MEDS: allopurinoL 300 MG TAB PO SCH (08:28)
[2020-01-10] MEDS: PARoxetine 20 MG TAB PO SCH (08:28)
[2020-01-10] MEDS: lisinopriL 20 MG TAB PO SCH ×2 (08:31→21:50)
[2020-01-10] MEDS: FENOFIBRATE 145 MG TAB (TRICOR) PO SCH (08:31)
[2020-01-10] MEDS: amLODIPine 5 MG TAB PO SCH ×2 (08:31→21:50)
[2020-01-10] MEDS: glipiZIDE (GLUCOTROL) 5 MG TAB PO SCH ×2 (08:31→17:12)
[2020-01-10] MEDS: DOCUSATE SODIUM 100 MG CAP PO SCH ×2 (08:32→21:46)
[2020-01-10] MEDS: CARVedilol 3.125 MG TAB PO SCH ×2 (08:32→21:51)
[2020-01-10] MEDS: LEVEMIR (INSULIN DETEMIR) 1 UNITS/0.01ML SC SCH (08:33)
[2020-01-10] MEDS: HumaLOG INSULIN (NovoLOG) PER UNIT SC SCH ×4 (08:33→21:00)
[2020-01-10 14:00] VITALS: BP 127/60
[2020-01-10 20:00] VITALS: BP 140/82
[2020-01-10] MEDS: SENNA 8.6 MG TAB (SENOKOT) PO SCH (21:46)
[2020-01-10] MEDS: ATORVASTATIN 20 MG TAB PO SCH (21:47)
[2020-01-11 06:00] VITALS: BP 131/65
[2020-01-11] MEDS: LEVOTHYROXINE 50MCG TABLET (0.05MG) PO SCH (06:43)
[2020-01-11 07:06] LABS: BASO # 0.1 10^3/uL (0.0-0.2); BASO % 0.9 % (0.0-1.0); EOS # 0.4 10^3/uL (0.0-0.5); EOS % 4.7 % (0.0-3.0); HEMOGLOBIN 13.6 g/dl (13.5-17.5); LYMPH # 2.7 10^3/uL (1.5-5.0); LYMPH % 31.6 % (24.0-44.0); MEAN CORPUSCULAR HEMOGLOBIN 32.3 pg (27.0-33.0); MONO # 0.8 10^3/uL (0.0-0.8); NEUTROPHILS # 4.6 10^3/uL (1.5-8.5); NEUTROPHILS % 53.3 % (36.0-66.0); PLATELET COUNT, AUTOMATED 242 10^3/uL (150-450); RED BLOOD COUNT 4.21 10^6/uL (4.30-6.10); WHITE BLOOD COUNT 8.6 10^3/uL (4.0-10.0)
[2020-01-11 07:21] LABS: BLOOD UREA NITROGEN 22 MG/DL (7-18); CALCIUM LEVEL 8.9 MG/DL (8.8-10.2); CARBON DIOXIDE LEVEL 22 MEQ/L (21-32); CHLORIDE LEVEL 109 MEQ/L (98-107); CREATININE FOR GFR 1.08 MG/DL (0.70-1.30); GLOMERULAR FILTRATION RATE > 60.0 (>42); GLUCOSE, FASTING 160 MG/DL (70-100); POTASSIUM SERUM 4.8 MEQ/L (3.5-5.1); SODIUM LEVEL 139 MEQ/L (136-145)
[2020-01-11] MEDS: lisinopriL 20 MG TAB PO SCH ×2 (08:19→20:57)
[2020-01-11] MEDS: DOCUSATE SODIUM 100 MG CAP PO SCH ×2 (08:19→20:57)
[2020-01-11] MEDS: PARoxetine 20 MG TAB PO SCH (08:19)
[2020-01-11] MEDS: glipiZIDE (GLUCOTROL) 5 MG TAB PO SCH ×2 (08:20→17:14)
[2020-01-11] MEDS: MULTIVITAMINS/MINERALS THERAP 1 TAB PO SCH (08:20)
[2020-01-11] MEDS: amLODIPine 5 MG TAB PO SCH ×2 (08:20→20:57)
[2020-01-11] MEDS: CARVedilol 3.125 MG TAB PO SCH ×2 (08:20→20:58)
[2020-01-11] MEDS: allopurinoL 300 MG TAB PO SCH (08:20)
[2020-01-11] MEDS: OMEPRAZOLE 20 MG CAP PO SCH (08:20)
[2020-01-11] MEDS: FENOFIBRATE 145 MG TAB (TRICOR) PO SCH (08:21)
[2020-01-11] MEDS: VITAMIN D 1,000 INTERNATIONAL UNITS TABLET PO SCH (08:21)
[2020-01-11] MEDS: HumaLOG INSULIN (NovoLOG) PER UNIT SC SCH ×4 (08:21→20:58)
[2020-01-11] MEDS: REMEDY PHYTOPLEX Z-GUARD PASTE 113GM TUBE (FROM STOREROOM PRODUCT) TOP SCH ×3 (08:21→20:58)
[2020-01-11] MEDS: LEVEMIR (INSULIN DETEMIR) 1 UNITS/0.01ML SC SCH (08:21)
[2020-01-11 14:00] VITALS: BP 125/59
--- NOTE | 2020-01-11 16:50 | IPNPDOC ---
PM&R Progress Note DATE OF SERVICE: January 11, 2020 Setter Machine Progress Note Subjective: Patient reporting he feels well, he thinks he is steady on hi feet and eager to go home by the end of the week. REVIEW OF SYSTEMS: The following is a completed review of systems and has been reviewed. Review of systems otherwise unremarkable. PAIN: Patient self reports no pain EYES: No recent vision changes EARS, NOSE, & THROAT: No throat pain, or dysphagia, or rhinorrhea CARDIOVASCULAR: Denies chest pain or palpitations PULMONARY: Denies shortness of breath GASTROINTESTINAL: Denies constipation/diarrhea GENITOURINARY: denies dysuria MUSCULOSKELETAL: generalized weakness NEUROLOGICAL:mild right sided paresis HEMATOLOGICAL: denies easy bruising SKIN: left frontal incision PSYCHIATRIC: Unremarkable All other review of systems found to be negative. PHYSICAL EXAMINATION: VITAL SIGNS: Please see below. GENERAL: Pleasant and cooperative. No acute distress. HEENT: PERRL. Extraocular movements intact. Clear conjunctiva, mild right sided facial droop CARDIOVASCULAR: Regular rate and rhythm. No murmurs, rubs, or gallops LUNGS: Clear to auscultation bilaterally. No wheezes. No rhonchi ABDOMEN: Soft, nontender, nondistended. Positive bowel sounds. Normal active bowel sounds NEUROLOGICAL: Alert and oriented times three. Cranial nerves II through XII grossly intact. Sensation grossly intact (-) clonus bilat +mild dysmetria with finger to nose on the left EXTREMITIES: 5\5 strength bilateral upper extremities. 5\5 strength right lower extremity.5/5 strength in left lower extremity SKIN: left frontal sutures c/d/i, no sacral erythema ASSESSMENT:79-year-old M with past medical history of CVA who presents status post SDH PLAN: 1. Rehab- PT/OT advance gait and ADL training, fall recovery, dynamic balance training, ambulating with RW and without -AUTO GARAGE ATTENDANT for cognition and swallow eval 2. Neuro: hx of CVA with right sided residual paresis - sequelae of stroke likely leading to falls and new finding of left sided subdural hematomas s/p evacuation, c/u off Asa and Plavix, f/u neurosurgery with Dr. Blank-January 27 (repeat imaging scheduled same day) -avoid strenuous activity, will keep head of bed elevated to 30 degrees -c/u Paroxetine SSRI in setting of recent stroke, patient reporting hx of depression but had stopped taking meds- c/u increased dosing of Paroxetine 40mg daily 3. Cardiac: chronic diastolic CHF- daily weights, fluid restrict, monitor for fluid overload- medicine consulted to assist in overall management -HTN c/u lisinopril, amlodipine -CAD c/u carvedilol- Antiplatelets on hold in setting of recent falls with SDH -HLD- c/u Tricor and statin 4. Resp: encourage incentive spirometry, monitor for infection 5. Endo: hypothyroidism c/u Synthroid, DM c/u glipizide, ISS -daily levemir ordered to elevated FS, c/u to manage and adjust prn 6. GI ppx: omeprazole 7. DVT ppx: TEDs, admission Dopplers negative, c/u to avoid chemoprophylaxis in setting of SDH 8. Pain: Tylenol and oxycodone prn 9. Dispo: TBD Allergies Coded Allergies: No Known Drug Allergies (Verified Allergy, Unknown, 08/09/19) Vital Signs Vital Signs Date Time Temp Pulse Resp B/P (MAP) Pulse Ox O2 Delivery O2 Flow Rate FiO2 01/11/20 14:00 97.0 66 20 125/59 (81) 95 Room Air Laboratory Data CBC/BMP Laboratory Tests 01/11/20 06:04 Labs 24H Laboratory Tests 2 01/10/20 21:45: Bedside Glucose (Misc Panel) 158H 01/11/20 06:04: Immature Granulocyte % (Auto) 0.5, Neutrophils (%) (Auto) 53.3, Lymphocytes (%) (Auto) 31.6, Monocytes (%) (Auto) 9.0H, Eosinophils (%) (Auto) 4.7H, Basophils (%) (Auto) 0.9, Neutrophils # (Auto) 4.6, Lymphocytes # (Auto) 2.7, Monocytes # (Auto) 0.8, Eosinophils # (Auto) 0.4, Basophils # (Auto) 0.1, Nucleated Red Blood Cells % (auto) 0.0, Anion Gap 8, Glomerular Filtration Rate > 60.0, Calcium Level 8.9 01/11/20 11:35: Bedside Glucose (Misc Panel) 255H 01/11/20 16:44: Bedside Glucose (Misc Panel) 179H Current Medications Current Medications Current Medications Medications (Trade) Dose Ordered Sig/Olga Route PRN Reason Start Time Stop Time Status Last Admin Dose Admin Acetaminophen (Tylenol Tab) 650 mg Q4HP PRN PO fever/MILD PAIN (PS 1-4) 01/07/20 14:15 01/08/20 08:32 Allopurinol (Zyloprim) 300 mg DAILY PO 01/08/20 09:00 01/11/20 08:20 Amlodipine Besylate (Norvasc) 5 mg BID PO 01/07/20 21:00 01/11/20 08:20 Atorvastatin Calcium (Lipitor) 80 mg QHS PO 01/07/20 21:00 01/10/20 21:47 Bisacodyl (Dulcolax Suppository) [address] CONSTIPATION 01/07/20 14:15 Carvedilol (COReg) 3.125 mg BID PO 01/07/20 21:00 01/11/20 08:20 Dextrose (Dextrose 50%) 25 ml ASDIRECTED PRN IV SEE LABEL COMMENTS 01/07/20 14:15 Docusate Sodium (Colace) 100 mg BID PO 01/07/20 21:00 01/11/20 08:19 Duloxetine HCl (Cymbalta) 60 mg DAILY PO 01/08/20 09:00 01/07/20 15:12 DC Fenofibrate (Tricor) 145 mg DAILY PO 01/08/20 09:00 01/11/20 08:21 Glipizide (Glucotrol) 10 mg BID@0730,1730 PO 01/07/20 17:30 01/11/20 08:20 Glucagon (Glucagon) 1 mg ASDIRECTED PRN SC SEE LABEL COMMENTS 01/07/20 14:15 Glucose (Glucose) 16 GM ASDIRECTED PRN PO SEE LABEL COMMENTS 01/07/20 14:15 Home Med (Med Rec Complete!) ASDIRECTED XX 01/07/20 11:30 01/07/20 11:19 DC Insulin Detemir (Levemir Insulin) 5 units DAILY SC 01/08/20 09:00 01/11/20 10:58 DC 01/11/20 08:21 Insulin Detemir (Levemir Insulin) 8 units DAILY SC 01/12/20 09:00 Insulin Human Lispro (HumaLOG INSULIN) SEE PROTOCOL TABLE AC SC 01/07/20 17:30 01/11/20 12:26 Insulin Human Lispro (HumaLOG INSULIN) SEE PROTOCOL TABLE QHS SC 01/07/20 21:00 01/09/20 20:37 Levothyroxine Sodium (Synthroid) 50 mcg DAILY@06 PO 01/08/20 06:00 01/11/20 06:43 Lisinopril (Prinivil) 20 mg BID PO 01/07/20 21:00 01/11/20 08:19 Multivitamins (Theragram-M) 1 tab DAILY PO 01/08/20 09:00 01/11/20 08:20 Omeprazole (PriLOSEC) 20 mg DAILY PO 01/08/20 09:00 01/11/20 08:20 Oxycodone HCl (Roxicodone, Oxyir) 5 mg Q6HP PRN PO PAIN 01/07/20 14:15 Paroxetine HCl (PAXil) 20 mg DAILY PO 01/08/20 09:00 01/08/20 16:09 DC 01/08/20 08:31 Paroxetine HCl (PAXil) 40 mg DAILY PO 01/08/20 09:00 01/07/20 15:06 DC Paroxetine HCl (PAXil) 40 mg DAILY PO 01/09/20 09:00 01/11/20 08:19 Senna (Senokot) 1 tab QHS PO 01/07/20 21:00 01/10/20 21:46 Vitamin D (Vitamin D) 5,000 units DAILY PO 01/08/20 09:00 01/11/20 08:21 ART GIANG MD January 11, 2020 16:50
[2020-01-11 20:00] VITALS: BP 142/67
[2020-01-11] MEDS: ATORVASTATIN 20 MG TAB PO SCH (20:57)
[2020-01-11] MEDS: SENNA 8.6 MG TAB (SENOKOT) PO SCH (20:57)
[2020-01-12 06:00] VITALS: BP 129/77
[2020-01-12] MEDS: LEVOTHYROXINE 50MCG TABLET (0.05MG) PO SCH (06:29)
[2020-01-12] MEDS: glipiZIDE (GLUCOTROL) 5 MG TAB PO SCH ×2 (07:59→17:07)
[2020-01-12] MEDS: HumaLOG INSULIN (NovoLOG) PER UNIT SC SCH ×4 (07:59→21:00)
[2020-01-12] MEDS: LEVEMIR (INSULIN DETEMIR) 1 UNITS/0.01ML SC SCH (08:00)
[2020-01-12] MEDS: lisinopriL 20 MG TAB PO SCH ×2 (08:00→21:35)
[2020-01-12] MEDS: CARVedilol 3.125 MG TAB PO SCH ×2 (08:00→21:35)
[2020-01-12] MEDS: FENOFIBRATE 145 MG TAB (TRICOR) PO SCH (08:01)
[2020-01-12] MEDS: OMEPRAZOLE 20 MG CAP PO SCH (08:01)
[2020-01-12] MEDS: amLODIPine 5 MG TAB PO SCH ×2 (08:01→21:35)
[2020-01-12] MEDS: VITAMIN D 1,000 INTERNATIONAL UNITS TABLET PO SCH (08:01)
[2020-01-12] MEDS: REMEDY PHYTOPLEX Z-GUARD PASTE 113GM TUBE (FROM STOREROOM PRODUCT) TOP SCH ×3 (08:01→21:00)
[2020-01-12] MEDS: PARoxetine 20 MG TAB PO SCH (08:01)
[2020-01-12] MEDS: allopurinoL 300 MG TAB PO SCH (08:01)
[2020-01-12] MEDS: DOCUSATE SODIUM 100 MG CAP PO SCH ×2 (08:01→21:35)
[2020-01-12] MEDS: MULTIVITAMINS/MINERALS THERAP 1 TAB PO SCH (08:01)
--- NOTE | 2020-01-12 12:25 | IPNPDOC ---
PM&R Progress Note DATE OF SERVICE: January 12, 2020 Measurement Analyst Progress Note Subjective: Patient reporting he feels comfortable walking without a cane and is agreeable to work on performing safe showers to be as independent as possible prior to going home. REVIEW OF SYSTEMS: The following is a completed review of systems and has been reviewed. Review of systems otherwise unremarkable. PAIN: Patient self reports no pain EYES: No recent vision changes EARS, NOSE, & THROAT: No throat pain, or dysphagia, or rhinorrhea CARDIOVASCULAR: Denies chest pain or palpitations PULMONARY: Denies shortness of breath GASTROINTESTINAL: Denies constipation/diarrhea GENITOURINARY: denies dysuria MUSCULOSKELETAL: generalized weakness NEUROLOGICAL:mild right sided paresis HEMATOLOGICAL: denies easy bruising SKIN: left frontal incision PSYCHIATRIC: Unremarkable All other review of systems found to be negative. PHYSICAL EXAMINATION: VITAL SIGNS: Please see below. GENERAL: Pleasant and cooperative. No acute distress. HEENT: PERRL. Extraocular movements intact. Clear conjunctiva, mild right sided facial droop CARDIOVASCULAR: Regular rate and rhythm. No murmurs, rubs, or gallops LUNGS: Clear to auscultation bilaterally. No wheezes. No rhonchi ABDOMEN: Soft, nontender, nondistended. Positive bowel sounds. Normal active bowel sounds NEUROLOGICAL: Alert and oriented times three. Cranial nerves II through XII grossly intact. Sensation grossly intact (-) clonus bilat +mild dysmetria with finger to nose on the left EXTREMITIES: 5\5 strength bilateral upper extremities. 5\5 strength right lower extremity.5/5 strength in left lower extremity SKIN: left frontal sutures c/d/i, no sacral erythema ASSESSMENT:79-year-old M with past medical history of CVA who presents status post SDH PLAN: 1. Rehab- PT/OT advance gait and ADL training, fall recovery, dynamic balance training, ambulating with RW and without -MULE RIDER for cognition and swallow eval 2. Neuro: hx of CVA with right sided residual paresis - sequelae of stroke likely leading to falls and new finding of left sided subdural hematomas s/p evacuation, c/u off Asa and Plavix, f/u neurosurgery with Dr. Blank-January 27 (repeat imaging scheduled same day) -avoid strenuous activity, will keep head of bed elevated to 30 degrees -c/u Paroxetine SSRI in setting of recent stroke, patient reporting hx of depression but had stopped taking meds- c/u increased dosing of Paroxetine 40mg daily with overall improvement in mood 3. Cardiac: chronic diastolic CHF- daily weights, fluid restrict, monitor for fluid overload- medicine consulted to assist in overall management -HTN c/u lisinopril, amlodipine -CAD c/u carvedilol- Antiplatelets on hold in setting of recent falls with SDH -HLD- c/u Tricor and statin 4. Resp: encourage incentive spirometry, monitor for infection 5. Endo: hypothyroidism c/u Synthroid, DM c/u glipizide, ISS -daily levemir ordered to elevated FS, c/u to manage and adjust prn 6. GI ppx: omeprazole 7. DVT ppx: TEDs, admission Dopplers negative, c/u to avoid chemoprophylaxis in setting of SDH 8. Pain: Tylenol and oxycodone prn 9. Dispo: TBD Allergies Coded Allergies: No Known Drug Allergies (Verified Allergy, Unknown, 08/09/19) Vital Signs Vital Signs Date Time Temp Pulse Resp B/P (MAP) Pulse Ox O2 Delivery O2 Flow Rate FiO2 01/12/20 08:01 63 129/77 01/12/20 06:00 98.8 18 95 Room Air Laboratory Data Labs 24H Laboratory Tests 2 01/11/20 16:44: Bedside Glucose (Misc Panel) 179H 01/11/20 20:54: Bedside Glucose (Misc Panel) 206H 01/12/20 07:49: Bedside Glucose (Misc Panel) 205H 01/12/20 11:43: Bedside Glucose (Misc Panel) 193H Current Medications Current Medications Current Medications Medications (Trade) Dose Ordered Sig/Olga Route PRN Reason Start Time Stop Time Status Last Admin Dose Admin Acetaminophen (Tylenol Tab) 650 mg Q4HP PRN PO fever/MILD PAIN (PS 1-4) 01/07/20 14:15 01/08/20 08:32 Allopurinol (Zyloprim) 300 mg DAILY PO 01/08/20 09:00 01/12/20 08:01 Amlodipine Besylate (Norvasc) 5 mg BID PO 01/07/20 21:00 01/12/20 08:01 Atorvastatin Calcium (Lipitor) 80 mg QHS PO 01/07/20 21:00 01/11/20 20:57 Bisacodyl (Dulcolax Suppository) 10 mg DAILYPRN PRN [place] CONSTIPATION 01/07/20 14:15 Carvedilol (COReg) 3.125 mg BID PO 01/07/20 21:00 01/12/20 08:00 Dextrose (Dextrose 50%) 25 ml ASDIRECTED PRN IV SEE LABEL COMMENTS 01/07/20 14:15 Docusate Sodium (Colace) 100 mg BID PO 01/07/20 21:00 01/12/20 08:01 Duloxetine HCl (Cymbalta) 60 mg DAILY PO 01/08/20 09:00 01/07/20 15:12 DC Fenofibrate (Tricor) 145 mg DAILY PO 01/08/20 09:00 01/12/20 08:01 Glipizide (Glucotrol) 10 mg BID@0730,1730 PO 01/07/20 17:30 01/12/20 07:59 Glucagon (Glucagon) 1 mg ASDIRECTED PRN SC SEE LABEL COMMENTS 01/07/20 14:15 Glucose (Glucose) 16 GM ASDIRECTED PRN PO SEE LABEL COMMENTS 01/07/20 14:15 Home Med (Med Rec Complete!) ASDIRECTED XX 01/07/20 11:30 01/07/20 11:19 DC Insulin Detemir (Levemir Insulin) 5 units DAILY SC 01/08/20 09:00 01/11/20 10:58 DC 01/11/20 08:21 Insulin Detemir (Levemir Insulin) 8 units DAILY SC 01/12/20 09:00 01/12/20 08:00 Insulin Human Lispro (HumaLOG INSULIN) SEE PROTOCOL TABLE AC SC 01/07/20 17:30 01/12/20 12:14 Insulin Human Lispro (HumaLOG INSULIN) SEE PROTOCOL TABLE QHS SC 01/07/20 21:00 01/09/20 20:37 Levothyroxine Sodium (Synthroid) 50 mcg DAILY@06 PO 01/08/20 06:00 01/12/20 06:29 Lisinopril (Prinivil) 20 mg BID PO 01/07/20 21:00 01/12/20 08:00 Multivitamins (Theragram-M) 1 tab DAILY PO 01/08/20 09:00 01/12/20 08:01 Omeprazole (PriLOSEC) 20 mg DAILY PO 01/08/20 09:00 01/12/20 08:01 Oxycodone HCl (Roxicodone, Oxyir) 5 mg Q6HP PRN PO PAIN 01/07/20 14:15 Paroxetine HCl (PAXil) 20 mg DAILY PO 01/08/20 09:00 01/08/20 16:09 DC 01/08/20 08:31 Paroxetine HCl (PAXil) 40 mg DAILY PO 01/08/20 09:00 01/07/20 15:06 DC Paroxetine HCl (PAXil) 40 mg DAILY PO 01/09/20 09:00 01/12/20 08:01 Senna (Senokot) 1 tab QHS PO 01/07/20 21:00 01/11/20 20:57 Vitamin D (Vitamin D) 5,000 units DAILY PO 01/08/20 09:00 01/12/20 08:01 ART GIANG MD January 12, 2020 12:25
[2020-01-12 14:00] VITALS: BP 129/59
--- NOTE | 2020-01-12 17:50 | IPNPDOC ---
Date Seen The patient was seen on 01/12/20. 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 He does report some left rib pain and gluteal pain which is unchanged from admission. Pt was previously followed by hospitalist, Dr. Silva, for medication review. OBJECTIVE PHYSICAL EXAMINATION: VITAL SIGNS: Please see below. GENERAL: Otherwise male in no acute distress, no slurred speech HEENT: EOMI CARDIOVASCULAR: S1/S2. RESPIRATORY: CTAB ABDOMINAL: +BS, nontender EXTREMITIES: able to move grossly NEUROLOGICAL: awake, finger, to nose intact PSYCHOLOGICAL: Appropriate affect ASSESSMENT AND PLAN: This is a 79-year-old male with a history of high-grade stenosis treated with aspirin and Plavix due to right-sided weakness, found to have a subdural hematoma on 01/04/2020, status post subdural evacuating port system placement at [facility], chronic diastolic heart failure with congestive heart failure (CHF), admitted to acute rehab for deconditioning. CURRENT ISSUES: #Subdural hematoma. Currently off aspirin and Plavix. ARU is the primary team Neurosurgical followup as outpatient. #rib pain and gluteal pain, likely secondary to musculoskeletal etiology, encouraged patient to continue PT, will add incentive spirometry, educated patient on signs and symptoms of worsening presentation, pain control and bowel regimen #History of diastolic heart failure/HTN. Continue on his home amlodipine, Coreg, and lisinopril, monitor with parameters #diabetes - continue home glipizide 10 mg twice a day, increased Levemir to 8 units subcu daily, sliding scale and hypoglycemic protocol # Hypothyroidism. Continued home 50 mcg daily of levothyroxine. # GERD: cont home chronic proton pump inhibitor (PPI) #mood disorders: cont home med #gout: cont home med #DVT ppx: SCD DNR/DNI Thank you for the consult. VS, I&O, 24H, Fishbone Vital Signs/I&O Vital Signs Date Time Temp Pulse Resp B/P (MAP) Pulse Ox O2 Delivery O2 Flow Rate FiO2 01/12/20 14:00 97.1 46 20 129/59 (82) 99 Room Air I&O- Last 24 Hours up to 6 AM 01/12/20 05:59 Intake Total 955 ml Output Total 600 ml Balance 355 ml Laboratory Data 24H LABS Laboratory Tests 2 01/11/20 20:54: Bedside Glucose (Misc Panel) 206H 01/12/20 07:49: Bedside Glucose (Misc Panel) 205H 01/12/20 11:43: Bedside Glucose (Misc Panel) 193H 01/12/20 16:27: Bedside Glucose (Misc Panel) 231H MARLYN COTO MD January 12, 2020 17:49
[2020-01-12 21:30] VITALS: BP 133/78
[2020-01-12] MEDS: SENNA 8.6 MG TAB (SENOKOT) PO SCH (21:35)
[2020-01-12] MEDS: ATORVASTATIN 20 MG TAB PO SCH (21:36)
[2020-01-13] MEDS: LEVOTHYROXINE 50MCG TABLET (0.05MG) PO SCH (05:40)
[2020-01-13 06:00] VITALS: BP 125/68
[2020-01-13 06:46] LABS: BASO # 0.1 10^3/uL (0.0-0.2); BASO % 1.1 % (0.0-1.0); EOS # 0.5 10^3/uL (0.0-0.5); EOS % 5.8 % (0.0-3.0); HEMATOCRIT 37.7 % (42.0-52.0); HEMOGLOBIN 12.3 g/dl (13.5-17.5); LYMPH # 2.4 10^3/uL (1.5-5.0); LYMPH % 30.2 % (24.0-44.0); MEAN CORPUSCULAR HEMOGLOBIN 31.2 pg (27.0-33.0); MEAN CORPUSCULAR HGB CONC 32.6 g/dl (32.0-36.5); MEAN CORPUSCULAR VOLUME 95.7 fl (80.0-96.0); MONO # 0.8 10^3/uL (0.0-0.8); MONO % 10.6 % (0.0-5.0); NEUTROPHILS # 4.1 10^3/uL (1.5-8.5); NEUTROPHILS % 51.7 % (36.0-66.0); PLATELET COUNT, AUTOMATED 245 10^3/uL (150-450); RED BLOOD COUNT 3.94 10^6/uL (4.30-6.10)
[2020-01-13 07:17] LABS: BLOOD UREA NITROGEN 20 MG/DL (7-18); CARBON DIOXIDE LEVEL 28 MEQ/L (21-32); CHLORIDE LEVEL 108 MEQ/L (98-107); CREATININE FOR GFR 1.14 MG/DL (0.70-1.30); GLOMERULAR FILTRATION RATE > 60.0 (>42); GLUCOSE, FASTING 135 MG/DL (70-100); POTASSIUM SERUM 4.3 MEQ/L (3.5-5.1); SODIUM LEVEL 142 MEQ/L (136-145)
[2020-01-13] MEDS: REMEDY PHYTOPLEX Z-GUARD PASTE 113GM TUBE (FROM STOREROOM PRODUCT) TOP SCH ×3 (09:00→20:54)
[2020-01-13] MEDS: VITAMIN D 1,000 INTERNATIONAL UNITS TABLET PO SCH (09:40)
[2020-01-13] MEDS: LEVEMIR (INSULIN DETEMIR) 1 UNITS/0.01ML SC SCH (09:40)
[2020-01-13] MEDS: MULTIVITAMINS/MINERALS THERAP 1 TAB PO SCH (09:40)
[2020-01-13] MEDS: HumaLOG INSULIN (NovoLOG) PER UNIT SC SCH ×4 (09:40→20:52)
[2020-01-13] MEDS: lisinopriL 20 MG TAB PO SCH ×2 (09:40→20:53)
[2020-01-13] MEDS: PARoxetine 20 MG TAB PO SCH (09:41)
[2020-01-13] MEDS: FENOFIBRATE 145 MG TAB (TRICOR) PO SCH (09:41)
[2020-01-13] MEDS: DOCUSATE SODIUM 100 MG CAP PO SCH ×2 (09:41→20:53)
[2020-01-13] MEDS: OMEPRAZOLE 20 MG CAP PO SCH (09:41)
[2020-01-13] MEDS: amLODIPine 5 MG TAB PO SCH ×2 (09:41→20:53)
[2020-01-13] MEDS: allopurinoL 300 MG TAB PO SCH (09:41)
[2020-01-13] MEDS: glipiZIDE (GLUCOTROL) 5 MG TAB PO SCH ×2 (09:42→17:20)
[2020-01-13] MEDS: CARVedilol 3.125 MG TAB PO SCH ×2 (09:42→20:53)
[2020-01-13 14:00] VITALS: BP 126/69
--- NOTE | 2020-01-13 15:45 | IPNPDOC ---
PM&R Progress Note DATE OF SERVICE: January 13, 2020 Fire Regulator Progress Note Subjective: Patient reporting his abck feel stiff and he thinks it is from the hospital bed, he is open to trying a heating pd. REVIEW OF SYSTEMS: The following is a completed review of systems and has been reviewed. Review of systems otherwise unremarkable. PAIN: Patient self reports low back pain EYES: No recent vision changes EARS, NOSE, & THROAT: No throat pain, or dysphagia, or rhinorrhea CARDIOVASCULAR: Denies chest pain or palpitations PULMONARY: Denies shortness of breath GASTROINTESTINAL: Denies constipation/diarrhea GENITOURINARY: denies dysuria MUSCULOSKELETAL: generalized weakness NEUROLOGICAL:mild right sided paresis HEMATOLOGICAL: denies easy bruising SKIN: left frontal incision PSYCHIATRIC: Unremarkable All other review of systems found to be negative. PHYSICAL EXAMINATION: VITAL SIGNS: Please see below. GENERAL: Pleasant and cooperative. No acute distress. HEENT: PERRL. Extraocular movements intact. Clear conjunctiva, mild right sided facial droop CARDIOVASCULAR: Regular rate and rhythm. No murmurs, rubs, or gallops LUNGS: Clear to auscultation bilaterally. No wheezes. No rhonchi ABDOMEN: Soft, nontender, nondistended. Positive bowel sounds. Normal active bowel sounds NEUROLOGICAL: Alert and oriented times three. Cranial nerves II through XII grossly intact. Sensation grossly intact (-) clonus bilat +mild dysmetria with finger to nose on the left EXTREMITIES: 5\5 strength bilateral upper extremities. 5\5 strength right lower extremity.5/5 strength in left lower extremity SKIN: left frontal sutures c/d/i, no sacral erythema ASSESSMENT:79-year-old M with past medical history of CVA who presents status post SDH PLAN: 1. Rehab- PT/OT advance gait and ADL training, fall recovery, dynamic balance training, ambulating with RW and without -CLOUD INFRASTRUCTURE ARCHITECT for cognition and swallow eval 2. Neuro: hx of CVA with right sided residual paresis - sequelae of stroke likely leading to falls and new finding of left sided subdural hematomas s/p evacuation, c/u off Asa and Plavix, f/u neurosurgery with Dr. Blank-January 27 (repeat imaging scheduled same day) -avoid strenuous activity, will keep head of bed elevated to 30 degrees -c/u Paroxetine SSRI in setting of recent stroke, patient reporting hx of depression but had stopped taking meds- c/u increased dosing of Paroxetine 40mg daily with overall improvement in mood 3. Cardiac: chronic diastolic CHF- daily weights, fluid restrict, monitor for fluid overload- medicine consulted to assist in overall management -HTN c/u lisinopril, amlodipine -CAD c/u carvedilol- Antiplatelets on hold in setting of recent falls with SDH -HLD- c/u Tricor and statin 4. Resp: encourage incentive spirometry, monitor for infection 5. Endo: hypothyroidism c/u Synthroid, DM c/u glipizide, ISS -daily levemir ordered to elevated FS, c/u to manage and adjust prn 6. GI ppx: omeprazole 7. DVT ppx: TEDs, admission Dopplers negative, c/u to avoid chemoprophylaxis in setting of SDH 8. Pain: Tylenol and k-pad for low back pain 9. Dispo: 01-14-20 to home Allergies Coded Allergies: No Known Drug Allergies (Verified Allergy, Unknown, 08/09/19) Vital Signs Vital Signs Date Time Temp Pulse Resp B/P (MAP) Pulse Ox O2 Delivery O2 Flow Rate FiO2 01/13/20 14:00 96.6 71 16 126/69 (88) 94 Room Air Laboratory Data CBC/BMP Laboratory Tests 01/13/20 06:14 Labs 24H Laboratory Tests 2 01/12/20 16:27: Bedside Glucose (Misc Panel) 231H 01/12/20 21:25: Bedside Glucose (Misc Panel) 166H 01/13/20 06:14: Immature Granulocyte % (Auto) 0.6, Neutrophils (%) (Auto) 51.7, Lymphocytes (%) (Auto) 30.2, Monocytes (%) (Auto) 10.6H, Eosinophils (%) (Auto) 5.8H, Basophils (%) (Auto) 1.1H, Neutrophils # (Auto) 4.1, Lymphocytes # (Auto) 2.4, Monocytes # (Auto) 0.8, Eosinophils # (Auto) 0.5, Basophils # (Auto) 0.1, Nucleated Red Blood Cells % (auto) 0.0, Anion Gap 6L, Glomerular Filtration Rate > 60.0, Calcium Level 9.0 01/13/20 06:57: Bedside Glucose (Misc Panel) 164H 01/13/20 11:51: Bedside Glucose (Misc Panel) 236H Current Medications Current Medications Current Medications Medications (Trade) Dose Ordered Sig/Olga Route PRN Reason Start Time Stop Time Status Last Admin Dose Admin Acetaminophen (Tylenol Tab) 650 mg Q4HP PRN PO fever/MILD PAIN (PS 1-4) 01/07/20 14:15 01/08/20 08:32 Allopurinol (Zyloprim) 300 mg DAILY PO 01/08/20 09:00 01/13/20 09:41 Amlodipine Besylate (Norvasc) 5 mg BID PO 01/07/20 21:00 01/13/20 09:41 Atorvastatin Calcium (Lipitor) 80 mg QHS PO 01/07/20 21:00 01/12/20 21:36 Bisacodyl (Dulcolax Suppository) 10 mg DAILYPRN PRN [place] CONSTIPATION 01/07/20 14:15 Carvedilol (COReg) 3.125 mg BID PO 01/07/20 21:00 01/13/20 09:42 Dextrose (Dextrose 50%) 25 ml ASDIRECTED PRN IV SEE LABEL COMMENTS 01/07/20 14:15 Docusate Sodium (Colace) 100 mg BID PO 01/07/20 21:00 01/13/20 09:41 Duloxetine HCl (Cymbalta) 60 mg DAILY PO 01/08/20 09:00 01/07/20 15:12 DC Fenofibrate (Tricor) 145 mg DAILY PO 01/08/20 09:00 01/13/20 09:41 Glipizide (Glucotrol) 10 mg BID@0730,1730 PO 01/07/20 17:30 01/13/20 09:42 Glucagon (Glucagon) 1 mg ASDIRECTED PRN SC SEE LABEL COMMENTS 01/07/20 14:15 Glucose (Glucose) 16 GM ASDIRECTED PRN PO SEE LABEL COMMENTS 01/07/20 14:15 Home Med (Med Rec Complete!) ASDIRECTED XX 01/07/20 11:30 01/07/20 11:19 DC Insulin Detemir (Levemir Insulin) 5 units DAILY SC 01/08/20 09:00 01/11/20 10:58 DC 01/11/20 08:21 Insulin Detemir (Levemir Insulin) 8 units DAILY SC 01/12/20 09:00 01/13/20 09:40 Insulin Human Lispro (HumaLOG INSULIN) SEE PROTOCOL TABLE AC SC 01/07/20 17:30 01/13/20 13:18 Insulin Human Lispro (HumaLOG INSULIN) SEE PROTOCOL TABLE QHS SC 01/07/20 21:00 01/09/20 20:37 Levothyroxine Sodium (Synthroid) 50 mcg DAILY@06 PO 01/08/20 06:00 01/13/20 05:40 Lisinopril (Prinivil) 20 mg BID PO 01/07/20 21:00 01/13/20 09:40 Multivitamins (Theragram-M) 1 tab DAILY PO 01/08/20 09:00 01/13/20 09:40 Omeprazole (PriLOSEC) 20 mg DAILY PO 01/08/20 09:00 01/13/20 09:41 Oxycodone HCl (Roxicodone, Oxyir) 5 mg Q6HP PRN PO PAIN 01/07/20 14:15 01/13/20 14:51 DC Paroxetine HCl (PAXil) 20 mg DAILY PO 01/08/20 09:00 01/08/20 16:09 DC 01/08/20 08:31 Paroxetine HCl (PAXil) 40 mg DAILY PO 01/08/20 09:00 01/07/20 15:06 DC Paroxetine HCl (PAXil) 40 mg DAILY PO 01/09/20 09:00 01/13/20 09:41 Senna (Senokot) 1 tab QHS PO 01/07/20 21:00 01/12/20 21:35 Vitamin D (Vitamin D) 5,000 units DAILY PO 01/08/20 09:00 01/13/20 09:40 ART GIANG MD January 13, 2020 15:45
[2020-01-13 20:10] VITALS: BP 137/66
[2020-01-13] MEDS: SENNA 8.6 MG TAB (SENOKOT) PO SCH (20:53)
[2020-01-13] MEDS: ATORVASTATIN 20 MG TAB PO SCH (20:53)
[2020-01-14] MEDS: LEVOTHYROXINE 50MCG TABLET (0.05MG) PO SCH (05:25)
[2020-01-14 05:54] VITALS: BP 127/72
[2020-01-14] MEDS: HumaLOG INSULIN (NovoLOG) PER UNIT SC SCH ×2 (07:37→12:08)
[2020-01-14] MEDS: LEVEMIR (INSULIN DETEMIR) 1 UNITS/0.01ML SC SCH (07:37)
[2020-01-14] MEDS: VITAMIN D 1,000 INTERNATIONAL UNITS TABLET PO SCH (07:38)
[2020-01-14 07:39] VITALS: BP 132/70
[2020-01-14] MEDS: MULTIVITAMINS/MINERALS THERAP 1 TAB PO SCH (07:39)
[2020-01-14] MEDS: lisinopriL 20 MG TAB PO SCH (07:39)
[2020-01-14] MEDS: amLODIPine 5 MG TAB PO SCH (07:39)
[2020-01-14] MEDS: CARVedilol 3.125 MG TAB PO SCH (07:40)
[2020-01-14] MEDS: glipiZIDE (GLUCOTROL) 5 MG TAB PO SCH (07:40)
[2020-01-14] MEDS: allopurinoL 300 MG TAB PO SCH (07:40)
[2020-01-14] MEDS: OMEPRAZOLE 20 MG CAP PO SCH (07:41)
[2020-01-14] MEDS: FENOFIBRATE 145 MG TAB (TRICOR) PO SCH (07:41)
[2020-01-14] MEDS: PARoxetine 20 MG TAB PO SCH (07:41)
[2020-01-14] MEDS: DOCUSATE SODIUM 100 MG CAP PO SCH (07:41)
[2020-01-14] MEDS: REMEDY PHYTOPLEX Z-GUARD PASTE 113GM TUBE (FROM STOREROOM PRODUCT) TOP SCH (07:42)
[2020-01-14] MEDS ORDERED: ATOR80TA59 PO (10:05)
[2020-01-14] MEDS ORDERED: PARO40TA3 PO (10:05)
[2020-01-14] MEDS ORDERED: ZYLO300T6 PO (10:05)
[2020-01-14] MEDS ORDERED: GLIP5TAB8 PO (10:05)
[2020-01-14] MEDS ORDERED: PIOG1TAB36 PO (10:05)
[2020-01-14] MEDS ORDERED: LISI-538 PO (10:05)
[2020-01-14] MEDS ORDERED: VITAD1000T PO (10:05)
[2020-01-14] MEDS ORDERED: CARV3.12 PO (10:05)
[2020-01-14] MEDS ORDERED: AMLO5TAB6 PO (10:05)
[2020-01-14] MEDS ORDERED: FENO145T7 PO (10:05)
[2020-01-14] MEDS ORDERED: LEVO50TA5 PO (10:05)
[2020-01-14 14:00] VITALS: BP 140/66
== END 2020-01-14 15:30 | disposition home or self-care (01) | DRG 57 ==
LOC: M PM&R 10:44
PROVIDERS: ADMIT Physical Medicine & Rehabilitation; ATTEND Physical Medicine & Rehabilitation
DX: I69.351 Hemiplegia and hemiparesis following cerebral infarction affecting right dominant side (principal); I50.32 Chronic diastolic (congestive) heart failure; E78.5 Hyperlipidemia, unspecified; I25.10 Atherosclerotic heart disease of native coronary artery without angina pectoris; E11.9 Type 2 diabetes mellitus without complications; E03.9 Hypothyroidism, unspecified; R26.89 Other abnormalities of gait and mobility; F32.9 Major depressive disorder, single episode, unspecified; R53.1 Weakness; I69.398 Other sequelae of cerebral infarction; Z66 Do not resuscitate; M10.9 Gout, unspecified; K21.9 Gastro-esophageal reflux disease without esophagitis; I69.391 Dysphagia following cerebral infarction; G47.33 Obstructive sleep apnea (adult) (pediatric); R13.10 Dysphagia, unspecified; I48.91 Unspecified atrial fibrillation; I25.2 Old myocardial infarction; I69.392 Facial weakness following cerebral infarction; Z87.891 Personal history of nicotine dependence; Z95.1 Presence of aortocoronary bypass graft; Z79.4 Long term (current) use of insulin; R27.8 Other lack of coordination; Z79.899 Other long term (current) drug therapy; Z95.5 Presence of coronary angioplasty implant and graft

== ENCOUNTER → 2021-02-03 | Outpatient (CLI) | payer MEDICARE ==
[~2021-02-03] MED LIST changes: +ACET1TAB55 PO; +AMLO1TAB24 PO; -AMLO5TAB6 PO; +ASPI-569 PO; -ASPI81TAEC PO; +CHOL50003 PO; +D31000TA2 PO; +GNP8.6TA7 PO; +INSUHUMDS SC; +LIDO5TD TOP; -LISI-538 PO; +LISI10TA22 PO; -LISI10TA4 PO; +LISI20TA33 PO; +PARO40TA3 PO; +THERTAB21 PO
--- NOTE | 2021-02-03 11:14 | REPVR ---
PROCEDURE INFORMATION: Exam: CT Lumbar Spine Without Contrast Exam date and time: 02/03/2021 10:05 AM Age: 81 years old Clinical indication: Low back pain; Additional info: Radiculopathy TECHNIQUE: Imaging protocol: Computed tomography images of the lumbar spine without contrast. Radiation optimization: All CT scans at this facility use at least one of these dose optimization techniques: automated exposure control; mA and/or kV adjustment per patient size (includes targeted exams where dose is matched to clinical indication); or iterative reconstruction. COMPARISON: No relevant prior studies available. FINDINGS: Tubes, catheters and devices: A spinal stimulator device is present. The leads enter the spinal canal between the spinous processes of T12 and L1. The leads ascend within the posterior canal, extending outside the field of view. Vertebrae: Bone mineralization is decreased, suggestive of osteoporosis. There is an acute/subacute comminuted L4 superior endplate compression fracture. There is approximately 30% loss of L4 vertebral body height. No significant retropulsion into the spinal canal is present. No other fracture is seen. There is mild straightening of the normal lumbar lordosis. Severe facet arthropathy is present in the mid to lower lumbar spine. Discs/Spinal canal/Neural foramina: Severe degenerative changes of the lumbar spine are present. Vacuum disc phenomenon is noted at L2-L3, L3-L4, and L4-L5. Severe disc space narrowing and fusion across the disc is present at L5-S1. Diffuse circumferential disc bulging and facet arthropathy is present at L2-L3 through L5-S1. There is moderate spinal canal stenosis and mild bilateral neural foraminal narrowing at L2-L3. There is moderate/severe spinal canal stenosis and moderate bilateral neural foraminal narrowing at L3-L4. There is moderate spinal canal stenosis and moderate bilateral neural foraminal narrowing at L4-L5. At L5-S1, there is no significant spinal canal stenosis. However, there is severe right and moderate left neural foraminal narrowing. Mediastinum: Incidental note is made of a small hiatal hernia. Vasculature: Atherosclerotic calcifications are noted within the aorta and its branches. Soft tissues: Unremarkable. IMPRESSION: 1. Acute/subacute L4 compression fracture 2. Chronic findings as discussed above. Electronically signed by: To Shrestha On 02/03/2021 11:14:06 AM
== END ==
LOC: M RAD 09:32
PROVIDERS: ATTEND Nurse Practitioner Family
DX: M54.16 Radiculopathy, lumbar region (principal)

== ENCOUNTER → 2022-07-20 | Outpatient (CLI) | payer MEDICARE ==
[~2022-07-20] MED LIST changes: -D31000TA2 PO; -FENO134C PO; +FENO134C20 PO; -GNP8.6TA7 PO; +SENN-111 PO; +VITA100093 PO
== END ==
LOC: M WHC 13:44
PROVIDERS: ATTEND Physician Assistant
DX: I65.23 Occlusion and stenosis of bilateral carotid arteries (principal)

== ENCOUNTER 2023-12-04 14:50 | Emergency (ER) | payer OTHER, MEDICARE ==
[~2023-12-04] VITALS: Ht 170.2 cm; Wt 88.6 kg
[~2023-12-04 14:50] MED LIST changes: +GLIP5TAB17 PO; -GLIP5TAB8 PO; -SENN-111 PO; +SENN-188 PO
[2023-12-04] MEDS: PERCOCET 5MG/325MG TAB PO ONE ×2 (15:58→22:19)
[2023-12-04 16:48] LABS: BASO # 0.1 10^3/uL (0.0-0.2); BASO % 0.3 % (0.0-1.0); EOS % 0.1 % (0.0-3.0); HEMATOCRIT 36.3 % (42.0-52.0); HEMOGLOBIN 11.8 g/dl (13.5-17.5); LYMPH # 3.3 10^3/uL (1.5-5.0); LYMPH % 19.5 % (24.0-44.0); MEAN CORPUSCULAR HEMOGLOBIN 30.7 pg (27.0-33.0); MEAN CORPUSCULAR HGB CONC 32.5 g/dl (32.0-36.5); MEAN CORPUSCULAR VOLUME 94.5 fl (80.0-96.0); MONO # 1.4 10^3/uL (0.0-0.8); MONO % 8.1 % (2.0-8.0); NEUTROPHILS % 71.4 % (36.0-66.0); PLATELET COUNT, AUTOMATED 204 10^3/uL (150-450); RED BLOOD COUNT 3.84 10^6/uL (4.30-6.10); WHITE BLOOD COUNT 16.8 10^3/uL (4.0-10.0)
[2023-12-04 17:14] LABS: CALCIUM LEVEL 8.8 MG/DL (8.3-10.6); CREATININE FOR GFR 1.4 MG/DL (0.70-1.30); GLOMERULAR FILTRATION RATE 51.7 (>35); POTASSIUM SERUM 4.4 MMOL/L (3.5-5.1)
[2023-12-04] MEDS: cefTRIAXone SOD 1 GM in D5W MINI-BAG PLUS 50 ML IV ONE (18:07)
[2023-12-04] MEDS: AZITHROMYCIN 250MG TABLET PO ONE (18:07)
[2023-12-04 18:22] LABS: PROCALCITONIN 0.1 ng/ml
[2023-12-04] MEDS: NS 1,000 ML IV SCH (19:16)
[2023-12-04 20:02] LABS: RSV AMPLIFICATION NEGATIVE (NEGATIVE)
[2023-12-04 22:20] VITALS: BP 177/77; TEMP 97.8; O2SAT 93
== END 2023-12-04 22:45 | disposition short-term general hospital (02) ==
LOC: M ED 14:50
DX: S32.020A Wedge compression fracture of second lumbar vertebra, initial encounter for closed fracture (principal); M89.9 Disorder of bone, unspecified; Y92.9 Unspecified place or not applicable; Y93.9 Activity, unspecified; Y99.9 Unspecified external cause status; E11.9 Type 2 diabetes mellitus without complications; I25.2 Old myocardial infarction; J44.9 Chronic obstructive pulmonary disease, unspecified; E78.5 Hyperlipidemia, unspecified; K21.9 Gastro-esophageal reflux disease without esophagitis
CPT/HCPCS: 71045; 72131; 73030; 80048; 84145; 85025; 87040; 87631; 93005; 93041; 94760; 96365; 96366; 99285; J0696

== ENCOUNTER 2024-01-20 12:52 | Inpatient (IN) | payer MEDICARE, OTHER ==
[~2024-01-20] VITALS: Ht 175.3 cm; Wt 83.5 kg
[2024-01-20] MEDS ORDERED: OXYC-1 (13:09)
[2024-01-20] MEDS ORDERED: OXYC10TA3 PO (13:11)
[2024-01-20 14:09] LABS: BASO # 0.1 10^3/uL (0.0-0.2); EOS # 0.4 10^3/uL (0.0-0.5); EOS % 5.8 % (0.0-3.0); HEMATOCRIT 35.1 % (42.0-52.0); HEMOGLOBIN 11.1 g/dl (13.5-17.5); LYMPH # 2.2 10^3/uL (1.5-5.0); LYMPH % 29.9 % (24.0-44.0); MEAN CORPUSCULAR HEMOGLOBIN 30.9 pg (27.0-33.0); MEAN CORPUSCULAR HGB CONC 31.6 g/dl (32.0-36.5); MEAN CORPUSCULAR VOLUME 97.8 fl (80.0-96.0); MONO # 0.7 10^3/uL (0.0-0.8); MONO % 9.1 % (2.0-8.0); NEUTROPHILS # 3.9 10^3/uL (1.5-8.5); NEUTROPHILS % 53.9 % (36.0-66.0); PLATELET COUNT, AUTOMATED 250 10^3/uL (150-450); RED BLOOD COUNT 3.59 10^6/uL (4.30-6.10); WHITE BLOOD COUNT 7.2 10^3/uL (4.0-10.0)
[2024-01-20 14:35] LABS: CK-MB VALUE MASS < 1.0 NG/ML (<3.6)
[2024-01-20 14:38] LABS: ALBUMIN 3.2 G/DL (3.2-5.2); ALKALINE PHOSPHATASE 482 U/L (46-116); ALT/SGPT 14 U/L (7.0-40); AST/SGOT 26 U/L (<34); BILIRUBIN,DIRECT < 0.1 MG/DL (<0.4); BILIRUBIN,TOTAL 0.2 MG/DL (0.3-1.2); BLOOD UREA NITROGEN 40 MG/DL (9-23); CALCIUM LEVEL 9.6 MG/DL (8.3-10.6); CARBON DIOXIDE LEVEL 30 MMOL/L (20-31); CHLORIDE LEVEL 107 MMOL/L (98-107); CREATININE FOR GFR 1.45 MG/DL (0.70-1.30); GLOMERULAR FILTRATION RATE 49.6 (>35); GLUCOSE, FASTING 160 MG/DL (74-106); POTASSIUM SERUM 5.2 MMOL/L (3.5-5.1); SODIUM LEVEL 141 MMOL/L (136-145); TOTAL PROTEIN 6.4 G/DL (5.7-8.2)
[2024-01-20 14:39] LABS: THYROID STIMULATING HORMONE 2.091 uIU/ML (0.55-4.78)
[2024-01-20 14:40] LABS: CPK CREATINE PHOSPHOKINASE 35 U/L (46-171); MB/CK RELATIVE INDEX 2.85 (< OR =4)
[2024-01-20] MEDS ORDERED: ISOVUE-370 76% 100ML VIAL As Ordered ONE (15:55)
[2024-01-20] MEDS: oxyCODONE 5MG TAB PO PRN (17:42)
[2024-01-20] MEDS: ASPIRIN 81MG CHEW TABLET PO ONE (18:31)
[2024-01-20] MEDS ORDERED: ACETAMINOPHEN TAB 650MG DOSE (2X325MG) PO PRN (18:45)
[2024-01-20] MEDS ORDERED: LR 1,000 ML IV SCH (18:50)
[2024-01-20] MEDS ORDERED: DEXTROSE 50% 50ML SYRINGE IV PRN (18:50)
[2024-01-20] MEDS ORDERED: GLUCAGON INJ 1MG VIAL SC PRN (18:50)
[2024-01-20] MEDS ORDERED: GLUCOSE 4 GM CHEW PO PRN (18:50)
[2024-01-20] MEDS: NS 1,000 ML IV SCH (19:53)
[2024-01-20] MEDS ORDERED: oxyCODONE 5MG TAB PO PRN (20:10)
[2024-01-20] MEDS ORDERED: DULO1CAP5 PO (20:44)
[2024-01-20] MEDS ORDERED: DULO1CAP6 PO (20:44)
[2024-01-20] MEDS ORDERED: NITR0.4S14 SL (20:44)
[2024-01-20] MEDS ORDERED: D 50CAP2 PO (20:44)
[2024-01-20] MEDS ORDERED: ASPI81CH33 PO (20:44)
[2024-01-20] MEDS ORDERED: ALLO300T2 PO (20:44)
[2024-01-20] MEDS ORDERED: CLOP75TA2 PO (20:44)
[2024-01-20] MEDS ORDERED: OXYC-517 PO (20:44)
[2024-01-20] MEDS ORDERED: OMEP-173 PO (20:44)
[2024-01-20] MEDS ORDERED: MULT-90 PO (20:45)
[2024-01-20 20:51] LABS: CHOLESTEROL RISK RATIO 4.87 (<5); HDL CHOLESTEROL 28.1 MG/DL (>40); LDL CHOLESTEROL 76.9 MG/DL (<100); NON-HDL-C 108.9 MG/DL
[2024-01-20] MEDS ORDERED: PREG50CA PO (20:52)
[2024-01-20] MEDS ORDERED: HOME MED LIST COMPLETE! XX SCH ×2 (20:55)
[2024-01-20] MEDS ORDERED: ASPIRIN 81MG CHEW TABLET PO SCH (21:00)
[2024-01-20 21:13] LABS: HEMOGLOBIN A1c 6.5 % (4.0-6.0)
[2024-01-20 21:32] VITALS: BP 158/74; TEMP 97.1; O2SAT 95
[2024-01-20] MEDS: INSULIN LISPRO (NovoLOG) PER UNIT SC SCH (21:52)
[2024-01-20] MEDS: ATORVASTATIN 20 MG TAB PO SCH (22:07)
[2024-01-20] MEDS: LIDOCAINE 5% (LIDODERM) PATCH TD SCH (22:10)
[2024-01-20 23:24] VITALS: BP 164/73; TEMP 97.9; O2SAT 92
[2024-01-20] MEDS: amLODIPine 5 MG TAB PO SCH (23:25)
[2024-01-20] MEDS: CARVedilol 3.125 MG TAB PO SCH (23:26)
[2024-01-21 03:48] VITALS: BP 152/72; TEMP 97.3; O2SAT 93
[2024-01-21] MEDS: oxyCODONE 5MG TAB PO PRN (04:06)
[2024-01-21] MEDS: HEPARIN SOD (PORCINE) 5000UNITS/ML 1ML VIAL/SYRINGE SC SCH (05:27)
[2024-01-21 06:07] LABS: HEMATOCRIT 32.5 % (42.0-52.0); HEMOGLOBIN 10.4 g/dl (13.5-17.5); MEAN CORPUSCULAR HEMOGLOBIN 31.1 pg (27.0-33.0); MEAN CORPUSCULAR VOLUME 97.3 fl (80.0-96.0); PLATELET COUNT, AUTOMATED 204 10^3/uL (150-450); RED BLOOD COUNT 3.34 10^6/uL (4.30-6.10); WHITE BLOOD COUNT 6.3 10^3/uL (4.0-10.0)
[2024-01-21 06:31] LABS: BLOOD UREA NITROGEN 31 MG/DL (9-23); CALCIUM LEVEL 9.1 MG/DL (8.3-10.6); CARBON DIOXIDE LEVEL 28 MMOL/L (20-31); CHLORIDE LEVEL 106 MMOL/L (98-107); GLOMERULAR FILTRATION RATE > 60.0 (>35); GLUCOSE, FASTING 128 MG/DL (74-106); POTASSIUM SERUM 4.7 MMOL/L (3.5-5.1); SODIUM LEVEL 140 MMOL/L (136-145)
[2024-01-21 07:51] VITALS: BP 150/68; TEMP 97.4; O2SAT 94
[2024-01-21] MEDS: INSULIN LISPRO (NovoLOG) PER UNIT SC SCH (08:57)
[2024-01-21] MEDS: LEVOTHYROXINE 50MCG TABLET (0.05MG) PO SCH (08:59)
[2024-01-21] MEDS: FENOFIBRATE 145MG TABLET (TRICOR) PO SCH (08:59)
[2024-01-21] MEDS: DULoxetine 30MG CAPSULE (CYMBALTA) PO SCH (08:59)
[2024-01-21] MEDS: CLOPIDOGREL 75 MG TAB PO SCH (09:00)
[2024-01-21] MEDS: PARoxetine 20MG TABLET PO SCH (09:00)
[2024-01-21] MEDS: OMEPRAZOLE 20MG CAP PO SCH (09:00)
[2024-01-21] MEDS ORDERED: DULoxetine 30MG CAPSULE (CYMBALTA) PO SCH (09:00)
[2024-01-21] MEDS: MULTIVITAMINS/MINERALS THERAP 1 TAB PO SCH (09:01)
[2024-01-21] MEDS ORDERED: PERCOCET 5MG/325MG TAB PO PRN ×2 (11:25)
[2024-01-21] MEDS ORDERED: HYDROMORPHONE HCL 0.5 MG/ 0.5 ML SYRINGE IV PRN (11:35)
[2024-01-21 12:00] VITALS: BP 135/63; TEMP 97.7; O2SAT 93
[2024-01-21] MEDS: HYDROMORPHONE HCL 0.5 MG/ 0.5 ML SYRINGE IV PRN (13:09)
[2024-01-21 16:00] VITALS: BP 156/68; TEMP 97.7; O2SAT 95
[2024-01-21 19:10] VITALS: BP 133/75; TEMP 97.7; O2SAT 94
[2024-01-21] MEDS: ASPIRIN 81MG CHEW TABLET PO SCH (21:28)
[2024-01-21 23:17] VITALS: BP 145/72; TEMP 98; O2SAT 94
[2024-01-22] VITALS (7 sets, daily range): BP systolic 129–164; BP diastolic 65–88; TEMP 97.1–97.9; O2SAT 94–97
[2024-01-22 05:44] LABS: HEMATOCRIT 33.4 % (42.0-52.0); HEMOGLOBIN 10.7 g/dl (13.5-17.5); MEAN CORPUSCULAR HEMOGLOBIN 30.5 pg (27.0-33.0); MEAN CORPUSCULAR VOLUME 95.2 fl (80.0-96.0); PLATELET COUNT, AUTOMATED 218 10^3/uL (150-450); RED BLOOD COUNT 3.51 10^6/uL (4.30-6.10); WHITE BLOOD COUNT 7.4 10^3/uL (4.0-10.0)
[2024-01-22 06:09] LABS: BLOOD UREA NITROGEN 27 MG/DL (9-23); CALCIUM LEVEL 9.3 MG/DL (8.3-10.6); CARBON DIOXIDE LEVEL 27 MMOL/L (20-31); CHLORIDE LEVEL 104 MMOL/L (98-107); CREATININE FOR GFR 1.09 MG/DL (0.70-1.30); GLOMERULAR FILTRATION RATE > 60.0 (>35); GLUCOSE, FASTING 195 MG/DL (74-106); POTASSIUM SERUM 4.4 MMOL/L (3.5-5.1); SODIUM LEVEL 139 MMOL/L (136-145)
[2024-01-22] MEDS: LIDOCAINE 5% (LIDODERM) PATCH TOP SCH (10:44)
[2024-01-22] MEDS: PREGABALIN 75 MG CAP(LYRICA) PO SCH (10:46)
[2024-01-22] MEDS: ACETAMINOPHEN 500 MG TAB PO SCH (12:36)
[2024-01-22] MEDS: CYCLOBENZAPRINE 5MG TABLET PO SCH (15:13)
[2024-01-23 07:01] LABS: HEMATOCRIT 33.1 % (42.0-52.0); HEMOGLOBIN 10.7 g/dl (13.5-17.5); MEAN CORPUSCULAR HEMOGLOBIN 30.5 pg (27.0-33.0); MEAN CORPUSCULAR HGB CONC 32.3 g/dl (32.0-36.5); MEAN CORPUSCULAR VOLUME 94.3 fl (80.0-96.0); PLATELET COUNT, AUTOMATED 207 10^3/uL (150-450); RED BLOOD COUNT 3.51 10^6/uL (4.30-6.10)
[2024-01-23 07:27] LABS: BLOOD UREA NITROGEN 25 MG/DL (9-23); CALCIUM LEVEL 9.3 MG/DL (8.3-10.6); CARBON DIOXIDE LEVEL 26 MMOL/L (20-31); CHLORIDE LEVEL 105 MMOL/L (98-107); CREATININE FOR GFR 1.11 MG/DL (0.70-1.30); GLOMERULAR FILTRATION RATE > 60.0 (>35); GLUCOSE, FASTING 168 MG/DL (74-106); SODIUM LEVEL 140 MMOL/L (136-145)
[2024-01-23 07:51] VITALS: BP 132/85; TEMP 97.2; O2SAT 94
[2024-01-23 09:54] VITALS: BP 164/80
[2024-01-23] MEDS: PREGABALIN 50 MG CAP (LYRICA) PO SCH (09:57)
[2024-01-23 09:58] VITALS: BP 164/80
[2024-01-23] MEDS: PARoxetine 20MG TABLET PO SCH (09:58)
[2024-01-23] MEDS ORDERED: oxyCODONE 5MG TAB PO PRN ×2 (10:15)
[2024-01-23 12:05] VITALS: BP 135/83; TEMP 97.8; O2SAT 94
[2024-01-23] MEDS ORDERED: ACET-683 PO (12:57)
[2024-01-23] MEDS ORDERED: PREG50CA PO (12:57)
[2024-01-23] MEDS ORDERED: PARO40TA3 PO (12:57)
[2024-01-23] MEDS ORDERED: LIDO5TD TOP (12:57)
== END 2024-01-23 15:12 | disposition home health service (06) | DRG 68 ==
LOC: M ED 12:52 → M ED INP 18:45 → M PCU 21:35
PROVIDERS: ADMIT Internal Medicine; ATTEND Internal Medicine
PROC: B246ZZZ Ultrasonography of Right and Left Heart (ICD-10-PCS; principal; 2024-01-21)
DX: I66.9 Occlusion and stenosis of unspecified cerebral artery (principal); C34.90 Malignant neoplasm of unspecified part of unspecified bronchus or lung; C79.51 Secondary malignant neoplasm of bone; I69.351 Hemiplegia and hemiparesis following cerebral infarction affecting right dominant side; G45.9 Transient cerebral ischemic attack, unspecified; I25.10 Atherosclerotic heart disease of native coronary artery without angina pectoris; Z95.5 Presence of coronary angioplasty implant and graft; I25.2 Old myocardial infarction; G89.3 Neoplasm related pain (acute) (chronic); E78.5 Hyperlipidemia, unspecified; F32.A Depression, unspecified; M10.9 Gout, unspecified; E03.9 Hypothyroidism, unspecified; N40.0 Benign prostatic hyperplasia without lower urinary tract symptoms; G47.33 Obstructive sleep apnea (adult) (pediatric); K21.9 Gastro-esophageal reflux disease without esophagitis; E11.22 Type 2 diabetes mellitus with diabetic chronic kidney disease; I12.9 Hypertensive chronic kidney disease with stage 1 through stage 4 chronic kidney disease, or unspecified chronic kidney disease; Z87.891 Personal history of nicotine dependence; N18.9 Chronic kidney disease, unspecified; E87.5 Hyperkalemia; Z66 Do not resuscitate; Z79.82 Long term (current) use of aspirin; Z79.890 Hormone replacement therapy; Z79.899 Other long term (current) drug therapy

== ENCOUNTER 2024-02-05 16:14 | Outpatient (RCR) | payer MEDICARE ==
[~2024-02-05 16:14] MED LIST changes: +ACET-683 PO; +ALLO300T2 PO; +ASPI81CH33 PO; +D 50CAP2 PO; +DULO1CAP5 PO; +DULO1CAP6 PO; +ISOVUE-370 76% 100ML VIAL As Ordered ONE; +LIDO15SO8 PO; +MULT-90 PO; +NITR0.4S14 SL; +OMEP-173 PO; +OXYC-1; +OXYC-517 PO; +OXYC10TA3 PO; +PREG50CA PO
== END 2024-02-07 ==
LOC: M ONCR 16:14
PROVIDERS: ATTEND General Practice
DX: Z51.0 Encounter for antineoplastic radiation therapy (principal); C79.51 Secondary malignant neoplasm of bone
CPT/HCPCS: 77280; 77307; 77334; 77336; 77412; Q9967